=== PATIENT | male | born 1960 | race Caucasian/White ===

== ENCOUNTER 2019-12-14 21:45 | Emergency (ER) | payer OTHER, SELFPAY ==
--- NOTE | ~2019-12-14 | XR_ITS ---
XR foot LT min 3V, XR ankle LT min 3V 12/14/2019 22:21 Indication: Left foot and ankle pain after recent fall Procedure: 4 views left foot and 4 views left ankle Comparison: No prior studies for comparison. Findings: There are second, third and fourth metatarsal neck fractures with mild lateral angulation. There is an intra-articular avulsion fracture medial base first proximal phalanx. Lisfranc joint inta ct. There is a degenerative calcaneal enthesophyte at the plantar surface. Ankle mortise intact. No f oreign bodies. Impression: 1: Mildly angulated nondisplaced fractures left second, third and fourth metatarsal necks. 2: Intra-articular avulsion fracture medial base left first proximal phalanx. Reviewed, dictated and finalized at location A. MACY TEACHER Impression: 1: Mildly angulated nondisplaced fractures left second, third and fourth metata rsal necks. 2: Intra-articular avulsion fracture medial base left first proximal phalanx. Impression: 1: Mildly angulated nondisplaced fractures left second, third and fourth metata rsal necks. 2: Intra-articular avulsion fracture medial base left first proximal phalanx.
[2019-12-14 21:49] VITALS: BP 152/78; PULSE 106; RESP 20; TEMP 36.7; O2SAT 98
--- NOTE | 2019-12-14 22:00 | ED.LOWEXIN ---
HPI - Extremity Injury (Lower) General Chief Complaint: Extremity Injury, Lower Stated Complaint: L foot pain Time Seen by Provider: 12/14/19 22:00 Source: patient Mode of arrival: ambulatory Limitations: no limitations History of Present Illness HPI Narrative: A 59 y/o male presents to the ED with c/o left foot pain that began 45 minutes ago. Pt states that he was carrying a box of decorations from a democrat when his left foot hit a curb and he fell over. Pt notes that he took Ibuprofen earlier today for a NEWSOME. Onset (ago): minute(s) (45) Injury: Left: foot Place: street/outdoors Context: other (hit curb) Related Data Home Medications Medication Instructions Recorded Confirmed lisinopril-hydrochlorothiazide 09/01/19 metformin 09/01/19 alcohol swabs pad TOPICAL 09/24/19 aspirin 81 mg tablet,delayed 81 mg PO DAILY 09/24/19 release blood sugar diagnostic #10 each 09/24/19 blood-glucose meter #1 each 09/24/19 cetirizine 10 mg tablet 10 mg PO DAILY 09/24/19 lancets 28 gauge #25 each 09/24/19 multivitamin 1 tablet PO DAILY 09/24/19 nystatin 100,000 unit/gram topical 1 applic TOPICAL BID 09/24/19 cream pen needle, diabetic 32 gauge x #10 each 09/24/19 Allergies Allergy/AdvReac Type Severity Reaction Status Date / Time No Known Allergies Allergy Verified 09/01/19 12:04 Review of Systems Review of Systems: All systems reviewed & are unremarkable except as noted in HPI and below Musculoskeletal: Comments: Reports: left foot pain PMFSH Past Medical History Medical History (Updated 12/14/19 @ 22:43 by James Anaya DO) Bronchitis Carpal tunnel syndrome of left wrist Diabetes GERD (gastroesophageal reflux disease) HTN (hypertension) Hypercholesterolemia Kidney stone Pneumonia Sleep apnea Surgical History Surgical History Hx of tonsillectomy Family History Family History Father Family history of suicide, Onset Age: 62 Patient's father is , Onset Age: 62 Sibling Patient's sister is in good health Patient's brother is in good health Family history of lupus erythematosus Patient's sister is Mother Family history of Alzheimer's disease Patient's mother is Social History Social History Smoking status: Current every day smoker Tobacco type: cigarettes Second hand tobacco smoke exposure: No Alcohol intake: current Gender identity (if verbalized by the patient): Male Comments PCP: TOMMIE Fuentes Exam Narrative: Exam Narrative: APPEARANCE: No acute distress, nontoxic, resting in bed Eyes: EOMI HEENT: Normocephalic, atraumatic, RESPIRATORY: No respiratory distress MUSCULOSKELETAl: Tender to palpation over the left dorsal distal foot at the base of digits 1 through 5 mild tenderness over the anterior ankle, no tenderness over the medial or lateral malleolus, no proximal fibula tenderness, dorsalis pedis pulse 2+, neurovascular intact NEURO: Awake and alert. Following commands, speech normal, no focal deficits SKIN:: Warm, dry. Normal Color no rash or lesions Course Course Emergency Course: Discussed with patient results of workup and diagnosis. Discussed need for follow-up with primary care, proper use of medication, and reasons to return to the emergency department. Patient understands and agrees to current treatment plan Vital Signs Vital signs: Vital Signs Temperature 98.1 F 12/14/19 21:49 Pulse Rate 106 H 12/14/19 21:49 Respiratory Rate 12/14/19 21:49 Blood Pressure 152/78 H 12/14/19 21:49 Pulse Oximetry 98 12/14/19 21:49 Temperature 98.1 F 12/14/19 21:49 Pulse Rate 106 H 12/14/19 21:49 Respiratory Rate 12/14/19 21:49 Blood Pressure 152/78 H 12/14/19 21:49 Pulse Oximetry 98 12/14/19 21:49 Procedu
[2019-12-14 22:57] VITALS: BP 143/85; PULSE 100; RESP 20; O2SAT 95
== END 2019-12-14 23:01 | disposition home or self-care (01) ==
PROVIDERS: Emergency Provider Emergency Medicine; PCP Physician Assistant
DX: S92.325A Nondisplaced fracture of second metatarsal bone, left foot, initial encounter for closed fracture (principal); S92.335A Nondisplaced fracture of third metatarsal bone, left foot, initial encounter for closed fracture; S92.345A Nondisplaced fracture of fourth metatarsal bone, left foot, initial encounter for closed fracture; S92.412A Displaced fracture of proximal phalanx of left great toe, initial encounter for closed fracture; E11.9 Type 2 diabetes mellitus without complications; K21.9 Gastro-esophageal reflux disease without esophagitis; I10 Essential (primary) hypertension; E78.00 Pure hypercholesterolemia, unspecified; G47.30 Sleep apnea, unspecified; Z87.442 Personal history of urinary calculi; F17.210 Nicotine dependence, cigarettes, uncomplicated; Z79.82 Long term (current) use of aspirin; Z79.84 Long term (current) use of oral hypoglycemic drugs
CPT/HCPCS: 29515; 73610; 73630; 99284

== ENCOUNTER 2020-02-29 08:19 | Outpatient (CLI) | payer OTHER, SELFPAY ==
[2020-02-29 09:03] LABS: Hematocrit 45.1 % (42.0-52.0); Hemoglobin 14.9 g/dL (14.0-18.0); Mean Corpuscular Hemoglobin 32.1 pg (26-34); Mean Corpuscular Volume 97.2 fl (80-100); Mean Platelet Volume 10.3 fl (7.4-10.4); Platelet Count Result 221 k/mm3 (150-375); Red Blood Count 4.64 M/mm3 (4.6-6.20); Red Cell Distribution Width 12.5 % (11.5-14.5); White Blood Count 9.7 K/mm3 (4.5-10.0)
[2020-02-29 09:11] LABS: Hemoglobin A1C 8.9 % (<5.7)
[2020-02-29 09:16] LABS: Alanine Aminotransferase 40 U/L (4-50); Albumin Level 3.7 g/dL (3.5-5.1); Alkaline Phosphatase 106 U/L (38-126); Aspartate Amino Transferase 27 U/L (17-59); Bilirubin,Total 0.4 mg/dL (0.2-1.3); Blood Urea Nitrogen 16 mg/dL (9-20); Calcium 8.5 mg/dL (8.4-10.2); Carbon Dioxide 32 mmol/L (22-30); Chloride 100 mmol/L (98-107); Cholesterol 144 mg/dL (0-200); Estimated Glomerular Filt Rate > 60; Glucose 188 mg/dL (75-110); HDL Direct 23 mg/dL; Potassium 4.4 mmol/L (3.4-5.0); Sodium 136 mmol/L (137-145); Triglycerides 105 mg/dL (<150)
[2020-02-29 09:27] LABS: LDL Cholesterol Direct 99 mg/dL
[2020-02-29 09:45] LABS: Creatinine Urine 110.5 mg/dL
[2020-02-29 09:46] LABS: Prostate Specific Antigen 0.7 ng/mL (< OR = 4.0)
[2020-02-29 10:01] LABS: MALB Creatinine Ratio < 5.4 mg/g (0-30); Microalbumin Urine Random < 6.0 mg/L (0-16.7)
== END 2020-02-29 08:20 | disposition home or self-care (01) ==
LOC: ANHLAB 08:21
PROVIDERS: PCP Physician Assistant; Visit Provider Physician Assistant
DX: Z00.00 Encounter for general adult medical examination without abnormal findings (principal); I10 Essential (primary) hypertension; E11.9 Type 2 diabetes mellitus without complications; Z12.5 Encounter for screening for malignant neoplasm of prostate
CPT/HCPCS: 36415; 80053; 80061; 82043; 83036; 84153; 84443; 85027; G0103

== ENCOUNTER 2020-09-05 08:32 | Outpatient (CLI) | payer OTHER, SELFPAY ==
[2020-09-05 08:59] LABS: Alanine Aminotransferase 68 U/L (4-50); Albumin Level 3.6 g/dL (3.5-5.1); Alkaline Phosphatase 97 U/L (38-126); Anion Gap 4 mmol/L (8-16); Aspartate Amino Transferase 40 U/L (17-59); Bilirubin,Total 0.8 mg/dL (0.2-1.3); Blood Urea Nitrogen 13 mg/dL (9-20); Calcium 9.4 mg/dL (8.4-10.2); Carbon Dioxide 35 mmol/L (22-30); Chloride 97 mmol/L (98-107); Estimated Glomerular Filt Rate > 60; Glucose 170 mg/dL (75-110); Potassium 4.4 mmol/L (3.4-5.0); Sodium 136 mmol/L (137-145)
[2020-09-05 09:07] LABS: Hemoglobin A1C 8.7 % (<5.7)
[2020-09-05 09:30] LABS: Prostate Specific Antigen 0.9 ng/mL (< OR = 4.0)
== END 2020-09-05 08:33 | disposition home or self-care (01) ==
LOC: ANHLAB 08:34
PROVIDERS: PCP Physician Assistant; Visit Provider Physician Assistant
DX: Z12.5 Encounter for screening for malignant neoplasm of prostate (principal); E11.9 Type 2 diabetes mellitus without complications; Z00.00 Encounter for general adult medical examination without abnormal findings
CPT/HCPCS: 36415; 80053; 83036; 84153; 84443; G0103

== ENCOUNTER 2020-10-30 16:26 | Outpatient (CLI) | payer OTHER, SELFPAY ==
--- NOTE | ~2020-10-30 | XR_ITS ---
EXAMINATION: XR chest 2V EXAM DATE: 10/30/2020 16:43 INDICATION: Cough, shortness of breath. TECHNIQUE: Frontal and lateral projections of the chest obtained and reviewed. Comparison is made to prior examination from 04/02/2010. FINDINGS: The lungs are clear. There are no pleural effusions. The cardiomediastinal silhouette is within normal limits. There is no pneumothorax suspected. Moderate lower thoracic dextroscoliosis. IMPRESSION: No acute cardiopulmonary findings. Reviewed, dictated and finalized at location A. ION INSTALLER
== END 2020-10-30 16:27 | disposition home or self-care (01) ==
PROVIDERS: PCP Physician Assistant; Visit Provider Internal Medicine
DX: R05 Cough (principal); R06.02 Shortness of breath
CPT/HCPCS: 71046

== ENCOUNTER 2021-01-14 11:18 | Emergency (ER) | payer OTHER, SELFPAY ==
[2021-01-14 11:36] VITALS: BP 132/66; PULSE 91; RESP 16; TEMP 36.1; O2SAT 98
--- NOTE | 2021-01-14 11:42 | ED.GENADULT ---
HPI - General Adult General Chief complaint: Skin/Abscess/Foreign Body Stated complaint: Boil on Back Time Seen by Provider: 01/14/21 11:42 Source: patient and RN notes reviewed Mode of arrival: ambulatory Limitations: no limitations History of Present Illness HPI narrative: 60-year-old male presents with complaints of tenderness and swelling for the past 3-4 days. Bernabe reports repeat boil to LT upper back with increasing size over the past 48 hours. No treatment. Tender to touch. No drainage. History of skin lesions. No fever or chills. No abdominal pain, nausea, and vomiting. Tolerating po intake well. Tetanus up to date. Remains active. The patient reports he have not been diagnosed with COVID-19. The patient reports he received the Jorge and Jorge vaccine on 12/29/2020. The patient reports he is not waiting for the results of a COVID-19 lab test. The patient reports he do not have weakness or fatigue. The patient reports he do not have a new or worsening cough or shortness of breath. Denies chest pain. The patient reports he do not have any rhinorrhea, congestion, loss of taste or smell, sore throat, and diarrhea. Denies recent traveling. Denies concerns for COVID-19 or exposures been home with limited outdoor exposure except for essential household needs, work, and return home. At this time, patient is not suspected of having COVID-19. Some parts of this dictation were generated by voice recognition software and may contain typographical and/or grammatical inaccuracies. Related Data Home Medications Medication Instructions Recorded Confirmed alcohol swabs pad TOPICAL 09/24/19 11/05/20 aspirin 81 mg tablet,delayed 81 mg PO DAILY 09/24/19 01/14/21 release blood sugar diagnostic #10 each 09/24/19 11/05/20 blood-glucose meter #1 each 09/24/19 11/05/20 lancets 28 gauge #25 each 09/24/19 11/05/20 multivitamin 1 tablet PO DAILY 09/24/19 01/14/21 Allergies Allergy/AdvReac Type Severity Reaction Status Date / Time No Known Allergies Allergy Verified 01/14/21 11:29 Review of Systems Review of Systems: Narrative: CONSTITUTIONAL: Denies fever, chills, sweats. EYES: Denies visual changes, redness, discharge. ENT: Denies rhinorrhea, congestion, sore throat, otalgia. CARDIOVASCULAR: Denies chest pain, palpitations, edema. RESPIRATORY: Denies dyspnea, wheezing, cough. GASTROINTESTINAL: Denies abdominal pain, nausea, vomiting, diarrhea. SKIN: Denies rash or itching. Left upper back with tenderness and swelling. Denies drainage. MUSCULOSKELETAL: Denies acute back pain, joint pain, or myalgia. NEUROLOGIC: Denies numbness or focal weakness. PSYCHIATRIC: Denies anxiety or depression. All systems reviewed & are unremarkable except as noted in HPI and below. [facility] Past Medical History Medical History Bronchitis Carpal tunnel syndrome of left wrist Diabetes GERD (gastroesophageal reflux disease) HTN (hypertension) Hypercholesterolemia Kidney stone Pneumonia Sleep apnea Surgical History Surgical History Hx of tonsillectomy Family History Family History (Updated 01/18/21 @ 18:58 by FARHANA Ambrosio) Father Family history of suicide, Onset Age: 62 Patient's father is , Onset Age: 62 Sibling Patient's sister is in good health Patient's brother is in good health Family history of lupus erythematosus Patient's sister is Mother Family history of Alzheimer's disease Patient's mother is Sibling Skin cancer (melanoma) Social History Social History (Updated 01/14/21 @ 11:53 by FARHANA Ambrosio) Smoking packs per day: 1 Smoking cigarettes per day: 20.0 Years smoked: 40 Smoking pack-years: 40.00 Smoking status: Current every day smoker Tobacco type: cigarettes Second hand tobacco smoke exposure:
== END 2021-01-14 12:02 | disposition home or self-care (01) ==
PROVIDERS: Emergency Provider Nurse Practitioner Family; PCP Physician Assistant
DX: L98.9 Disorder of the skin and subcutaneous tissue, unspecified (principal); E11.9 Type 2 diabetes mellitus without complications; K21.9 Gastro-esophageal reflux disease without esophagitis; I10 Essential (primary) hypertension; E78.00 Pure hypercholesterolemia, unspecified; G47.30 Sleep apnea, unspecified
CPT/HCPCS: 99213; G0463

== ENCOUNTER 2021-01-21 09:10 | Outpatient (CLI) | payer OTHER, SELFPAY ==
[2021-01-21 12:46] LABS: Alanine Aminotransferase 56 U/L (4-50); Albumin Level 3.8 g/dL (3.5-5.1); Alkaline Phosphatase 103 U/L (38-126); Anion Gap 6 mmol/L (8-16); Aspartate Amino Transferase 31 U/L (17-59); Bilirubin,Total 0.4 mg/dL (0.2-1.3); Blood Urea Nitrogen 18 mg/dL (9-20); Calcium 9.1 mg/dL (8.4-10.2); Carbon Dioxide 29 mmol/L (22-30); Chloride 98 mmol/L (98-107); Estimated Glomerular Filt Rate > 60; Glucose 250 mg/dL (75-110); Potassium 5.1 mmol/L (3.4-5.0); Sodium 133 mmol/L (137-145)
[2021-01-21 13:19] LABS: Creatinine Urine 98.1 mg/dL
[2021-01-21 13:20] LABS: MALB Creatinine Ratio 8.5 mg/g (0-30); Microalbumin Urine Random 8.3 mg/L (0-16.7)
== END 2021-01-21 09:11 | disposition home or self-care (01) ==
LOC: ANHWCLAB 09:14
PROVIDERS: PCP Physician Assistant; Visit Provider Internal Medicine Endocrinology, Diabetes & Metabolism
DX: E11.9 Type 2 diabetes mellitus without complications (principal); E78.00 Pure hypercholesterolemia, unspecified; I10 Essential (primary) hypertension
CPT/HCPCS: 36415; 80053; 82043; 84443

== ENCOUNTER 2021-02-05 08:22 | Emergency (ER) | payer OTHER, SELFPAY ==
[2021-02-05 08:45] VITALS: BP 123/60; PULSE 95; RESP 16; TEMP 36.1; O2SAT 98
--- NOTE | 2021-02-05 09:08 | ED.SKABFB ---
HPI - Skin/Abscess/Foreign Bdy General Chief complaint: Skin/Abscess/Foreign Body Stated complaint: cyst on back Time Seen by Provider: 02/05/21 09:08 Source: patient Mode of arrival: ambulatory Limitations: no limitations History of Present Illness HPI narrative: Bernabe Santiago is a 60 yo male with a PMH of Type1 DM, HTN, ED who comes to [facility] and for repeat visit with a large infected cyst on his back. Indurated area of the cyst is about 10 x 10 inflamed area is smaller elliptical 3 x 5 area. It does not feel fluctuant but is tender and patient complains that he cannot sleep. He has been taking his Bactrim and has completed the prescription. He has not been putting warm soaks on a regular basis but does take a warm shower Related Data Home Medications Medication Instructions Recorded Confirmed alcohol swabs pad TOPICAL 09/24/19 01/21/21 aspirin 81 mg tablet,delayed 81 mg PO DAILY 09/24/19 01/21/21 release blood-glucose meter #1 each 09/24/19 01/21/21 lancets 28 gauge #25 each 09/24/19 01/21/21 multivitamin 1 tablet PO DAILY 09/24/19 01/21/21 Allergies Allergy/AdvReac Type Severity Reaction Status Date / Time No Known Allergies Allergy Verified 02/05/21 14:33 Review of Systems Review of Systems: Narrative: CONSTITUTIONAL: Denies fever, chills, sweats. EYES: Denies visual changes, redness, discharge. ENT: Denies rhinorrhea, congestion, sore throat, otalgia. CARDIOVASCULAR: Denies chest pain, palpitations, edema. RESPIRATORY: Denies dyspnea, wheezing, cough GASTROINTESTINAL: Denies abdominal pain, nausea, vomiting, diarrhea. GENITOURINARY: Denies dysuria, hematuria, abnormal discharge SKIN: Denies rash or itching. Large cystic inflamed area on left upper back measuring 3 x 5 with a 10 x 10 indurated base suspect this to be a cyst NEUROLOGIC: Denies numbness, or focal weakness. PSYCHIATRIC: Denies anxiety or depression. [facility] Past Medical History Medical History Bronchitis Carpal tunnel syndrome of left wrist Diabetes GERD (gastroesophageal reflux disease) HTN (hypertension) Hypercholesterolemia Kidney stone Pneumonia Sleep apnea Surgical History Surgical History History of carpal tunnel release 1990 Hx of tonsillectomy Family History Family History Father Family history of suicide, Onset Age: 62 Patient's father is , Onset Age: 62 Sibling Patient's sister is in good health Patient's brother is in good health Family history of lupus erythematosus Patient's sister is Mother Family history of Alzheimer's disease Patient's mother is Sibling Skin cancer (melanoma) Social History Social History Smoking packs per day: 1 Smoking cigarettes per day: 20.0 Years smoked: 40 Smoking pack-years: 40.00 Smoking status: Current every day smoker Tobacco type: cigarettes Second hand tobacco smoke exposure: No Alcohol intake: current Substance use: never Gender identity (if verbalized by the patient): Male Comments At time of signature, I agree with nursing past medical, surgical, social and family history. There is no relevant family history pertinent to the presenting complaint. Exam Narrative: Exam Narrative: GENERAL: This is a well-nourished, well-developed patient, in mild distress. HEAD: normocephalic, atraumatic. EYES: PERRL. Sclera clear/white. Vision is grossly intact. EARS: External ears normal, auditory canals clear and without drainage, TMs normal without perforation. Hearing grossly intact. NOSE: External nose normal without nasal discharge, nares without redness, no rhinorrhea. THROAT: Mucous membranes moist, posterior pharynx NECK: Neck supple, non-tender CARDIOVASCULAR: Reg
== END 2021-02-05 10:00 | disposition home or self-care (01) ==
PROVIDERS: Emergency Provider Nurse Practitioner; PCP Physician Assistant
DX: L72.9 Follicular cyst of the skin and subcutaneous tissue, unspecified (principal); F17.210 Nicotine dependence, cigarettes, uncomplicated; E11.9 Type 2 diabetes mellitus without complications; K21.9 Gastro-esophageal reflux disease without esophagitis; I10 Essential (primary) hypertension; E78.00 Pure hypercholesterolemia, unspecified; G47.30 Sleep apnea, unspecified
CPT/HCPCS: 10061; 99213; G0463

== ENCOUNTER 2021-04-17 08:54 | Outpatient (CLI) | payer OTHER, SELFPAY ==
[2021-04-17 09:41] LABS: Cholesterol 153 mg/dL (0-200); HDL Direct 24 mg/dL; Triglycerides 92 mg/dL (<150)
[2021-04-17 09:52] LABS: LDL Cholesterol Direct 96 mg/dL
== END 2021-04-17 08:55 | disposition home or self-care (01) ==
PROVIDERS: PCP Physician Assistant; Visit Provider Internal Medicine Endocrinology, Diabetes & Metabolism
DX: E78.00 Pure hypercholesterolemia, unspecified (principal)
CPT/HCPCS: 36415; 80061

== ENCOUNTER 2021-06-04 11:37 | Emergency (ER) | payer OTHER, SELFPAY ==
--- NOTE | 2021-06-04 11:46 | WPDEDEXPGENP ---
HPI - General Ped General Chief complaint: Abdominal Pain Stated complaint: right side pain Time Seen by Provider: 06/04/21 11:47 Source: patient and RN notes reviewed Mode of arrival: ambulatory Limitations: no limitations Nursing Documentation: reviewed/agree History of Present Illness HPI narrative: 60-year-old male presents to the emergency room with right lower quadrant pain. Patient states that a week ago he slipped at work and thought he pulled a muscle but since yesterday the right lower quadrant pain has become worse. Patient states I am concerned for appendicitis. Denies fevers. No nausea vomiting or diarrhea. No chest pain or shortness of breath. Related Data Home Medications Medication Instructions Recorded Confirmed alcohol swabs pad TOPICAL 09/24/19 04/27/21 aspirin 81 mg tablet,delayed 81 mg PO DAILY 09/24/19 06/04/21 release multivitamin 1 tablet PO DAILY 09/24/19 06/04/21 Allergies Allergy/AdvReac Type Severity Reaction Status Date / Time No Known Allergies Allergy Verified 06/04/21 11:56 Pediatric Review of Systems All systems ED: reviewed and negative except as stated Constitutional: Denies fever and chills Cardiovascular: Denies chest pain Respiratory: Denies cough and dyspnea Gastrointestinal: Reports as per HPI and abdominal pain; Denies nausea and vomiting Genitourinary: Denies dysuria Musculoskeletal: Denies back pain and joint swelling Integumentary: Denies rash Neurological: Denies headache Endocrine: Denies fatigue PMFSH Past Medical History Medical History Bronchitis Carpal tunnel syndrome of left wrist Diabetes GERD (gastroesophageal reflux disease) HTN (hypertension) Hypercholesterolemia Kidney stone Pneumonia Sleep apnea Surgical History Surgical History History of carpal tunnel release 1990 Hx of tonsillectomy Infected epidermoid cyst Family History Family History Father Family history of suicide, Onset Age: 62 Patient's father is , Onset Age: 62 Sibling Patient's sister is in good health Patient's brother is in good health Family history of lupus erythematosus Patient's sister is Mother Family history of Alzheimer's disease Patient's mother is Sibling Skin cancer (melanoma) Social History Social History Smoking packs per day: 1 Smoking cigarettes per day: 20.0 Years smoked: 40 Smoking pack-years: 40.00 Smoking status: Current every day smoker Tobacco type: cigarettes Second hand tobacco smoke exposure: No Alcohol intake: current Substance use: never Gender identity (if verbalized by the patient): Male Comments At the time of my signature, I reviewed and agree with the nursing past medical, surgical, social, and family history. There is no relevant family history pertinent to the patient complaint. Pediatric Exam General: Limitations: no limitations General appearance: well-appearing, well-hydrated, active and well-nourished Head: Head exam: normocephalic Eye: Eye exam: Present normal appearance ENT: ENT exam: normal exam Neck: Neck exam: Present normal inspection and full ROM Chest: Chest inspection: Present normal inspection Respiratory: Respiratory exam: Present normal lung sounds bilaterally; Absent respiratory distress, wheezes and accessory muscle use Cardiovascular: Cardiovascular exam: Present regular rate and normal rhythm Abdominal Exam: Abdominal exam: Present soft, tenderness (Right lower quadrant), normal bowel sounds and tenderness at McBurney's Point Abdominal tenderness: Present RLQ Extremities Exam: Extremities exam: Present normal inspection and full ROM Back Exam: Back exam: Present normal inspection and full ROM; Absent tend
[2021-06-04 11:47] VITALS: BP 111/71; PULSE 91; RESP 16; TEMP 36.2; O2SAT 98
== END 2021-06-04 11:54 | disposition short-term general hospital (02) ==
LOC: EXPCOLL 11:39
PROVIDERS: Emergency Provider Nurse Practitioner; PCP Physician Assistant
DX: R10.9 Unspecified abdominal pain (principal); E11.9 Type 2 diabetes mellitus without complications; K21.9 Gastro-esophageal reflux disease without esophagitis; I10 Essential (primary) hypertension; E78.00 Pure hypercholesterolemia, unspecified; G47.30 Sleep apnea, unspecified; F17.210 Nicotine dependence, cigarettes, uncomplicated
CPT/HCPCS: 99212; G0463

== ENCOUNTER 2021-06-04 12:09 | Emergency (ER) | payer OTHER, SELFPAY ==
[2021-06-04 12:27] VITALS: BP 126/79; PULSE 89; RESP 18; O2SAT 97
--- NOTE | 2021-06-04 12:37 | PC.NURSE ---
This RN into pts room to start IV. Pt states that he doesn't really want an IV if he doesn't need one. Informed Dr. Connell of this.
--- NOTE | 2021-06-04 12:58 | ED.ABDPAIN ---
HPI - Abdominal Pain General Chief Complaint: Abdominal Pain Stated Complaint: RLQ pain Time Seen by Provider: 06/04/21 12:26 Source: patient Mode of arrival: ambulatory Limitations: no limitations History of Present Illness HPI narrative: 60-year-old male Complains of right-sided back flank and abdomen pain for several days worse for the last day or 2 Pain waxes and wanes and at its worst is an 8 He has not noticed anything that makes it better or worse No fever, appetite is good, no nausea vomiting diarrhea or constipation Similarly no hematuria no dysuria or frequency He has a remote history of kidney stones when he was a kid but does not think they felt like this He was talking to friends at work and they got him worried about appendicitis Related Data Home Medications Medication Instructions Recorded Confirmed alcohol swabs pad TOPICAL 09/24/19 04/27/21 aspirin 81 mg tablet,delayed 81 mg PO DAILY 09/24/19 06/04/21 release multivitamin 1 tablet PO DAILY 09/24/19 06/04/21 Allergies Allergy/AdvReac Type Severity Reaction Status Date / Time No Known Allergies Allergy Verified 06/04/21 11:56 Review of Systems Review of Systems: All systems reviewed & are unremarkable except as noted in HPI and below Constitutional: Constitutional: Reports no additional constitutional complaints, Denies chills, Denies fever(s) and Denies headache(s) Eyes: Eyes: Reports no additional eye complaints and Denies change in vision ENT: Denies headache(s) and Denies sore throat Cardiovascular: Cardiovascular: Denies chest pain and Denies dyspnea Respiratory: Respiratory: Denies cough and Denies dyspnea Gastrointestinal: Gastrointestinal: Reports abdominal pain, Denies bloating, Denies constipation, Denies diarrhea and Denies vomiting Genitourinary: Genitourinary: Denies hematuria, Denies dysuria and Denies urinary frequency Musculoskeletal: Musculoskeletal: Denies deformity, Denies arthralgias, Denies joint swelling and Denies numbness Integumentary/Breasts: Skin/Breast: Denies rash and Denies wounds Neurologic: Denies headache(s), Denies focal weakness and Denies numbness Psychiatric: Psychiatric: Reports no additional psychiatric complaints Endocrine: Endocrine: Reports no additional endocrine complaints Hematologic/Lymphatic: Hematologic/Lymphatic: Reports no additional hematologic/lymphatic complaints Allergic/Immunologic: Allergic/Immunologic: Reports no additional allergic/immunologic complaints PMFSH Past Medical History Medical History Bronchitis Carpal tunnel syndrome of left wrist Diabetes GERD (gastroesophageal reflux disease) HTN (hypertension) Hypercholesterolemia Kidney stone Pneumonia Sleep apnea Surgical History Surgical History History of carpal tunnel release 1990 Hx of tonsillectomy Infected epidermoid cyst Family History Family History Father Family history of suicide, Onset Age: 62 Patient's father is , Onset Age: 62 Sibling Patient's sister is in good health Patient's brother is in good health Family history of lupus erythematosus Patient's sister is Mother Family history of Alzheimer's disease Patient's mother is Sibling Skin cancer (melanoma) Social History Social History Smoking packs per day: 1 Smoking cigarettes per day: 20.0 Years smoked: 40 Smoking pack-years: 40.00 Smoking status: Current every day smoker Tobacco type: cigarettes Second hand tobacco smoke exposure: No Alcohol intake: current Substance use: never Gender identity (if verbalized by the patient): Male Exam Const: General: cooperative, no acute distress and alert Nutritional Appearance: obese Orientation/cons
[2021-06-04 13:40] LABS: Basophils Percent Auto 0.4 % (0.2-1.2); Eosinophils Absolute Auto 0.2 K/mm3 (0-0.3); Eosinophils Percent Auto 2.1 % (0-4.4); Hematocrit 43.3 % (42.0-52.0); Hemoglobin 14.5 g/dL (14.0-18.0); Immature Granulocyte Absolute 0.05 K/mm3 (0.00-0.031); Immature Granulocyte Percent A 0.5 % (0-0.5); Mean Corpuscular HGB Conc 33.5 g/dl (32-36); Mean Corpuscular Volume 95.6 fl (80-100); Monocytes Absolute Auto 0.8 K/mm3 (0.1-0.6); Monocytes Percent Auto 8.5 % (2.6-8.5); Neutrophils Absolute Auto 6.3 K/mm3 (1.3-6.7); Neutrophils Percent Auto 65.5 % (45.5-73.1); Platelet Count Result 225 k/mm3 (150-375); Red Blood Count 4.53 M/mm3 (4.6-6.20); Red Cell Distribution Width 12.9 % (11.5-14.5); White Blood Count 9.6 K/mm3 (4.5-10.0)
[2021-06-04 13:55] LABS: Alanine Aminotransferase 34 U/L (4-50); Albumin Level 3.7 g/dL (3.5-5.1); Alkaline Phosphatase 90 U/L (38-126); Anion Gap 5 mmol/L (8-16); Aspartate Amino Transferase 27 U/L (17-59); Bilirubin,Total 0.4 mg/dL (0.2-1.3); Blood Urea Nitrogen 18 mg/dL (9-20); Carbon Dioxide 29 mmol/L (22-30); Chloride 102 mmol/L (98-107); Estimated CRCL calculation 123 ml/min; Estimated Glomerular Filt Rate > 60; Glucose 81 mg/dL (65-110); Lipase 296 U/L (23-300); Potassium 4.3 mmol/L (3.4-5.0); Sodium 136 mmol/L (137-145)
[2021-06-04 14:00] VITALS: BP 120/75; PULSE 88; RESP 18; O2SAT 100
[2021-06-04 14:59] LABS: Add Urine Microscopic? NO; Appearance Urine Clear (Clear); Bilirubin Urine Negative (Negative); Blood Urine Negative (Negative); Color Urine Yellow (Yellow); Glucose Urine UA Negative (Negative); Ketones Urine Negative (Negative); Leukocyte Esterase Ur Negative LEU/UL (Negative); Nitrate Urine Negative (Negative); Protein Urine Negative (Negative); Specific Grav Ur 1.023 (1.001-1.035); Urobilinogen Urine Negative mg/dL (<2.0)
[2021-06-04 16:09] VITALS: BP 121/87; PULSE 80; RESP 18; O2SAT 100
== END 2021-06-04 16:24 | disposition home or self-care (01) ==
PROVIDERS: Emergency Provider Emergency Medicine; PCP Physician Assistant
DX: R10.9 Unspecified abdominal pain (principal); T14.8XXA Other injury of unspecified body region, initial encounter; F17.210 Nicotine dependence, cigarettes, uncomplicated; E11.9 Type 2 diabetes mellitus without complications; I10 Essential (primary) hypertension; E78.00 Pure hypercholesterolemia, unspecified; Z87.442 Personal history of urinary calculi; Z87.19 Personal history of other diseases of the digestive system; Y33.XXXA Other specified events, undetermined intent, initial encounter; Z79.82 Long term (current) use of aspirin
CPT/HCPCS: 36415; 80053; 81003; 83690; 85025; 99283

== ENCOUNTER 2021-08-26 06:49 | Outpatient (CLI) | payer OTHER, SELFPAY ==
[2021-08-26 08:26] LABS: Hematocrit 45.4 % (42.0-52.0); Hemoglobin 15.3 g/dL (14.0-18.0); Mean Corpuscular HGB Conc 33.7 g/dl (32-36); Mean Corpuscular Hemoglobin 32.1 pg (26-34); Mean Corpuscular Volume 95.4 fl (80-100); Mean Platelet Volume 10.2 fl (7.4-10.4); Platelet Count Result 235 k/mm3 (150-375); Red Blood Count 4.76 M/mm3 (4.6-6.20); Red Cell Distribution Width 12.5 % (11.5-14.5); White Blood Count 9.2 K/mm3 (4.5-10.0)
[2021-08-26 08:27] LABS: Hemoglobin A1C 7.1 % (<5.7)
[2021-08-26 08:44] LABS: Alanine Aminotransferase 37 U/L (4-50); Albumin Level 3.9 g/dL (3.5-5.1); Alkaline Phosphatase 87 U/L (38-126); Anion Gap 7 mmol/L (8-16); Aspartate Amino Transferase 29 U/L (17-59); Bilirubin,Total 0.6 mg/dL (0.2-1.3); Blood Urea Nitrogen 16 mg/dL (9-20); Calcium 9.3 mg/dL (8.4-10.2); Carbon Dioxide 31 mmol/L (22-30); Chloride 99 mmol/L (98-107); Cholesterol 157 mg/dL (0-200); Estimated Glomerular Filt Rate > 60; Glucose 152 mg/dL (65-110); HDL Direct 24 mg/dL; Potassium 4.2 mmol/L (3.4-5.0); Sodium 137 mmol/L (137-145); Triglycerides 110 mg/dL (<150)
[2021-08-26 08:55] LABS: LDL Cholesterol Direct 106 mg/dL
[2021-08-26 09:13] LABS: Prostate Specific Antigen 1.3 ng/mL (< OR = 4.0)
[2021-08-26 09:48] LABS: Folic Acid 15.9 ng/mL (2.76->20)
== END 2021-08-26 06:50 | disposition home or self-care (01) ==
PROVIDERS: PCP Physician Assistant; Visit Provider Physician Assistant
DX: E11.9 Type 2 diabetes mellitus without complications (principal); Z12.5 Encounter for screening for malignant neoplasm of prostate; R53.83 Other fatigue
CPT/HCPCS: 36415; 80053; 80061; 82607; 82746; 83036; 84153; 84443; 85027; G0103

== ENCOUNTER → 2021-09-21 03:50 | Outpatient (CLI) | payer OTHER, SELFPAY ==
[2021-09-21 20:04] LABS: SARS-CoV-2 RNA PCR Positive
== END ==
PROVIDERS: PCP Physician Assistant; Visit Provider Physician Assistant
DX: U07.1 COVID-19 (principal)
CPT/HCPCS: C9803; U0003; U0005

== ENCOUNTER 2021-12-13 00:02 | Day surgery (SDC) | payer OTHER, SELFPAY ==
[2021-11-29 13:56] VITALS: BMI 41.2
--- NOTE | 2021-12-10 13:36 | PM.HPGS ---
History of Present Illness History of Present Illness Consent: Risks, benefits, and alternatives have been discussed and questions answered. Patient agrees to proceed with procedure. Chief complaint: neoplasm screening, hx of colon polyps Narrative: Bernabe Santiago is a 61 year old male referred for colon cancer screening. he has a history of polyps Review of Systems Review of Systems: All systems reviewed & are unremarkable except as noted in HPI and below PMFSH Past Medical History Medical History Bronchitis Carpal tunnel syndrome of left wrist Diabetes GERD (gastroesophageal reflux disease) HTN (hypertension) Hypercholesterolemia Kidney stone Pneumonia Sleep apnea Surgical History Surgical History History of carpal tunnel release 1990 Hx of tonsillectomy Infected epidermoid cyst Family History Family History Father Family history of suicide, Onset Age: 62 Patient's father is , Onset Age: 62 Sibling Patient's sister is in good health Patient's brother is in good health Family history of lupus erythematosus Patient's sister is Mother Family history of Alzheimer's disease Patient's mother is Sibling Skin cancer (melanoma) Social History Social History Smoking packs per day: 1 Smoking cigarettes per day: 20.0 Years smoked: 40 Smoking pack-years: 40.00 Smoking status: Current every day smoker Tobacco type: cigarettes Second hand tobacco smoke exposure: No Alcohol intake: current Substance use: never Living arrangements: with family Gender identity (if verbalized by the patient): Male Sexual Orientation (if Verbalized by the Patient): Straight or Heterosexual Spiritual care concerns: No Meds Home Medications and Allergies Home Medications Medication Instructions Recorded Confirmed Type alcohol swabs pad TOPICAL 09/24/19 08/31/21 History aspirin 81 mg tablet,delayed 81 mg PO DAILY 09/24/19 11/29/21 History release multivitamin 1 tablet PO DAILY 09/24/19 11/29/21 History pen needle, diabetic 32 gauge x See Rx Instructions .ROUTE 08/24/20 08/31/21 Rx .COMPLEX #100 ea blood sugar diagnostic #400 ea 03/03/21 04/27/21 Rx blood-glucose meter #1 ea 03/03/21 04/27/21 Rx lancets 33 gauge #400 ea 03/03/21 08/31/21 Rx dulaglutide 3 mg/0.5 mL 3 mg SUBCUT WEEKLY #2 ml 08/30/21 11/29/21 Rx subcutaneous pen injector omega-3 acid ethyl esters 1 gram 1 cap PO BID #180 cap 08/30/21 11/29/21 Rx capsule lisinopril 10 1 tablet PO DAILY #90 tablet 10/10/21 11/29/21 Rx mg-hydrochlorothiazide 12.5 mg tablet metformin 1,000 mg tablet 1,000 mg PO BID #180 tablet 10/10/21 11/29/21 Rx insulin glargine 100 unit/mL (3 50 unit SUBCUT DAILY 90 Days #45 ml 11/22/21 11/29/21 Rx mL) subcutaneous pen cetirizine [Zyrtec] 10 mg PO DAILY 11/29/21 11/29/21 History tadalafil 20 mg PO DAILY PRN 11/29/21 11/29/21 History tamsulosin 0.4 mg PO DAILY PRN 11/29/21 11/29/21 History Allergies Allergy/AdvReac Type Severity Reaction Status Date / Time No Known Allergies Allergy Verified 12/13/21 06:22 Exam Resp: Auscultation: clear to auscultation bilaterally Cardio: Rate: regular rate Rhythm: regular rhythm GI: GI Palp: Yes Soft to palpation and No Tenderness to palpation present (GI) Assessment and Plan Assessment and plan (1) Colon cancer screening: Code(s): Z12.11 - Encounter for screening for malignant neoplasm of colon Status: Acute Assessment and Plan: Colonoscopy with possible biopsy or polypectomy or cautery or injection of substances.
[2021-12-13 06:29] VITALS: BP 138/75; PULSE 98; RESP 18; TEMP 36.6; O2SAT 98
[2021-12-13] MEDS: LACTATED RINGERS 1,000 ML 150 ML IV CONT (06:43)
[2021-12-13 06:45] LABS: Glucose Point of Care 131 mg/dl (65-105)
--- NOTE | 2021-12-13 07:06 | WPDANESEPPF ---
Anes - Initial Pre Proc Eval Procedure: Operation Date: 12/13/21 07:30 Proposed Procedures p Screening Colonoscopy - Francisco Javier Valentin MD Date/Time: 12/13/21 07:06 Surgeon: Francisco Javier Valentin MD Pre Op Diagnosis: neoplasm screening, hx of colon polyps Patient Data Age: 61 Gender: M Height: 1.83 m Weight: 133 kg Last Vital Signs Temp 36.6 C 12/13/21 06:29 Pulse 98 12/13/21 06:29 Resp 18 12/13/21 06:29 BP 138/75 12/13/21 06:29 Pulse Ox 98 12/13/21 06:29 Allergies Allergy/AdvReac Type Severity Reaction Status Date / Time No Known Allergies Allergy Verified 12/13/21 06:22 Home Medications Medication Instructions Recorded Confirmed Type alcohol swabs pad TOPICAL 09/24/19 08/31/21 History aspirin 81 mg tablet,delayed 81 mg PO DAILY 09/24/19 11/29/21 History release multivitamin 1 tablet PO DAILY 09/24/19 11/29/21 History pen needle, diabetic 32 gauge x See Rx Instructions .ROUTE 08/24/20 08/31/21 Rx 5/32 .COMPLEX #100 ea blood sugar diagnostic #400 ea 03/03/21 04/27/21 Rx blood-glucose meter #1 ea 03/03/21 04/27/21 Rx lancets 33 gauge #400 ea 03/03/21 08/31/21 Rx dulaglutide 3 mg/0.5 mL 3 mg SUBCUT WEEKLY #2 ml 08/30/21 11/29/21 Rx subcutaneous pen injector omega-3 acid ethyl esters 1 gram 1 cap PO BID #180 cap 08/30/21 11/29/21 Rx capsule lisinopril 10 1 tablet PO DAILY #90 tablet 10/10/21 11/29/21 Rx mg-hydrochlorothiazide 12.5 mg tablet metformin 1,000 mg tablet 1,000 mg PO BID #180 tablet 10/10/21 11/29/21 Rx insulin glargine 100 unit/mL (3 50 unit SUBCUT DAILY 90 Days #45 ml 11/22/21 11/29/21 Rx mL) subcutaneous pen cetirizine [Zyrtec] 10 mg PO DAILY 11/29/21 11/29/21 History tadalafil 20 mg PO DAILY PRN 11/29/21 11/29/21 History tamsulosin 0.4 mg PO DAILY PRN 11/29/21 11/29/21 History Laboratory Tests 12/13/21 06:40 POC Capillary Glucose 131 mg/dl H mg/dl (65-105) Patient hx anesthesia problems: none Family hx anesthesia problems: none Results Review: All pre-operative results and documents have been reviewed as part of the pre-operative evaluation. [facility] Past Medical History Medical History Bronchitis Carpal tunnel syndrome of left wrist Diabetes GERD (gastroesophageal reflux disease) HTN (hypertension) Hypercholesterolemia Kidney stone Pneumonia Sleep apnea Surgical History Surgical History History of carpal tunnel release 1990 Hx of tonsillectomy Infected epidermoid cyst Family History Family History Father Family history of suicide, Onset Age: 62 Patient's father is , Onset Age: 62 Sibling Patient's sister is in good health Patient's brother is in good health Family history of lupus erythematosus Patient's sister is Mother Family history of Alzheimer's disease Patient's mother is Sibling Skin cancer (melanoma) Social History Social History Smoking packs per day: 1 Smoking cigarettes per day: 20.0 Years smoked: 40 Smoking pack-years: 40.00 Smoking status: Current every day smoker Tobacco type: cigarettes Second hand tobacco smoke exposure: No Alcohol intake: current Substance use: never Living arrangements: with family Gender identity (if verbalized by the patient): Male Sexual Orientation (if Verbalized by the Patient): Straight or Heterosexual Spiritual care concerns: No Anes - Eval Final PreProcedure Day of Procedure 12/13/21 07:06 Patient weight: morbidly obese Heart: regular rate and rhythm Lungs: clear to auscultation Airway: Mallampati scale class II Neurological: alert and oriented Last oral intake: >/= 8 hours ASA classification: III Emergent: no Anesthetic plan: proceed Anesthesia type
[2021-12-13 07:45] VITALS: BP 89/56; PULSE 95; RESP 22; O2SAT 97
[2021-12-13 07:55] VITALS: BP 118/83; PULSE 92; RESP 26; O2SAT 97
[2021-12-13 07:57] LABS: Glucose Point of Care 131 mg/dl (65-105)
[2021-12-13 08:05] VITALS: BP 117/70; PULSE 85; RESP 25; O2SAT 98
== END 2021-12-13 08:14 | disposition home or self-care (01) ==
PROVIDERS: PCP Physician Assistant; Visit Provider Internal Medicine Gastroenterology
PROC: 0DJD8ZZ Inspection of Lower Intestinal Tract, Via Natural or Artificial Opening Endoscopic (ICD-10-PCS; CPT 45378; principal; 2021-12-13 07:30)
DX: Z12.11 Encounter for screening for malignant neoplasm of colon (principal); K62.1 Rectal polyp; K57.30 Diverticulosis of large intestine without perforation or abscess without bleeding; E11.9 Type 2 diabetes mellitus without complications; I10 Essential (primary) hypertension; E78.00 Pure hypercholesterolemia, unspecified; K21.9 Gastro-esophageal reflux disease without esophagitis; G47.30 Sleep apnea, unspecified; F17.210 Nicotine dependence, cigarettes, uncomplicated; E66.01 Morbid (severe) obesity due to excess calories; Z68.39 Body mass index [BMI] 39.0-39.9, adult; Z79.899 Other long term (current) drug therapy; Z79.84 Long term (current) use of oral hypoglycemic drugs; Z79.4 Long term (current) use of insulin
CPT/HCPCS: 45380; 82948; 88305; J2704; J7120

== ENCOUNTER 2022-02-12 08:53 | Outpatient (CLI) | payer OTHER, SELFPAY ==
--- NOTE | ~2022-02-12 | MR_ITS ---
EXAMINATION: MR lumbar spine wo con DATE: 02/12/2022 09:30 INDICATION: Dorsalgia, unspecified. TECHNIQUE: Magnetic resonance imaging (MRI) of the lumbar spine was performed without intravenous con trast. Sequences included sagittal T2-weighted FSE, sagittal T2-weighted FS FSE, sagittal T1-weighted FSE, and axial T2-weighted FSE. COMPARISON: None FINDINGS: There is 9 degrees levocurvature of thoracolumbar spine. Vertebral body heights are normal. There are hemangiomas in T11, T12, and L1 vertebral bodies. Vertebral body heights are normal. There is mildly decreased disc height at T12-L1. The distal spinal cord signal intensity is normal. The co nus medullaris is at L1. The following disc levels are specifically discussed: L1-L2: The disc does not extend beyond the endplate margin. There is mild bilateral facet joint osteo arthritis. There is no neural foraminal stenosis. There is no central canal stenosis. L2-L3: The disc does not extend beyond the endplate margin. There is moderate bilateral facet joint o steoarthritis. There is no neural foraminal stenosis. There is no central canal stenosis. L3-L4: The disc does not extend beyond the endplate margin. There is moderate right and mild left fac et joint osteoarthritis. There is no neural foraminal stenosis. There is no central canal stenosis. L4-L5: The disc is bulging. There is severe bilateral facet joint osteoarthritis. There is mild bilat eral neural foraminal stenosis. There is mild central canal stenosis. L5-S1: The disc does not extend beyond the endplate margin. There is mild left facet joint osteoarthr itis. There is no neural foraminal stenosis. There is no central canal stenosis. IMPRESSION: 1. Mild lumbar spondylosis. Reviewed, dictated and finalized at location A. IMPRESSION: 1. Mild lumbar spondylosis.
== END 2022-02-12 08:54 | disposition home or self-care (01) ==
LOC: ANHIMG 08:54
PROVIDERS: PCP Physician Assistant; Visit Provider Physician Assistant
DX: M47.896 Other spondylosis, lumbar region (principal)
CPT/HCPCS: 72148

== ENCOUNTER 2022-09-03 08:17 | Outpatient (CLI) | payer OTHER, SELFPAY ==
[2022-09-03 09:05] LABS: Basophils Percent Auto 0.4 % (0.2-1.2); Eosinophils Absolute Auto 0.2 K/mm3 (0-0.3); Eosinophils Percent Auto 2.4 % (0-4.4); Hematocrit 45.3 % (42.0-52.0); Hemoglobin 14.9 g/dL (14.0-18.0); Immature Granulocyte Absolute 0.05 K/mm3 (0.00-0.031); Immature Granulocyte Percent A 0.5 % (0-0.5); Lymphocytes Absolute Auto 1.89 K/mm3 (0.9-3.2); Lymphocytes Percent Auto 20.4 % (18.3-44.2); Mean Corpuscular HGB Conc 32.9 g/dl (32-36); Mean Corpuscular Hemoglobin 32.1 pg (26-34); Mean Corpuscular Volume 97.6 fl (80-100); Mean Platelet Volume 9.9 fl (7.4-10.4); Monocytes Percent Auto 10.5 % (2.6-8.5); Neutrophils Absolute Auto 6.1 K/mm3 (1.3-6.7); Neutrophils Percent Auto 65.8 % (45.5-73.1); Platelet Count Result 230 k/mm3 (150-375); Red Blood Count 4.64 M/mm3 (4.6-6.20); Red Cell Distribution Width 12.4 % (11.5-14.5); White Blood Count 9.3 K/mm3 (4.5-10.0)
[2022-09-03 09:18] LABS: Alanine Aminotransferase 51 U/L (6-50); Albumin Level 3.9 g/dL (3.5-5.1); Alkaline Phosphatase 89 U/L (38-126); Anion Gap 8 mmol/L (8-16); Aspartate Amino Transferase 31 U/L (17-59); Bilirubin,Total 0.6 mg/dL (0.2-1.3); Blood Urea Nitrogen 15 mg/dL (9-20); Carbon Dioxide 31 mmol/L (22-30); Chloride 99 mmol/L (98-107); Cholesterol 148 mg/dL (0-200); Estimated Glomerular Filt Rate > 60; Glucose 106 mg/dL (65-110); HDL Direct 28 mg/dL; Potassium 4.6 mmol/L (3.4-5.0); Sodium 138 mmol/L (137-145); Triglycerides 77 mg/dL (<150)
[2022-09-03 09:31] LABS: LDL Cholesterol Direct 94 mg/dL
[2022-09-03 09:51] LABS: Prostate Specific Antigen 2.2 ng/mL (< OR = 4.0)
[2022-09-03 10:29] LABS: Folic Acid > 20.0 ng/mL (2.76->20)
== END 2022-09-03 08:18 | disposition home or self-care (01) ==
PROVIDERS: PCP Physician Assistant; Referring Provider Nurse Practitioner Family; Visit Provider Physician Assistant
DX: Z00.00 Encounter for general adult medical examination without abnormal findings (principal); E11.9 Type 2 diabetes mellitus without complications; Z12.5 Encounter for screening for malignant neoplasm of prostate
CPT/HCPCS: 36415; 80053; 80061; 82607; 82746; 84153; 84443; 85025; G0103

== ENCOUNTER 2022-10-21 14:08 | Emergency (ER) | payer OTHER, SELFPAY ==
[2022-10-21 14:24] VITALS: BP 130/71; PULSE 99; RESP 16; TEMP 36.3; O2SAT 96
--- NOTE | 2022-10-21 14:46 | ED.URI ---
HPI - URI/Sore Throat General Chief Complaint: Upper Respiratory Infection Stated Complaint: Sinus Time Seen by Provider: 10/21/22 14:46 Source: patient Mode of arrival: ambulatory Limitations: no limitations History of Present Illness HPI Narrative: 62-year-old male presents with complaint of cough, chest congestion for 2-3 days. Reports last week he was treated with a sinus infection with Augmentin. Reports that he only felt better for a few days before cough started. Afebrile. No chest pain or shortness of breath. Is taking [id number] Mucinex and Tessalon Perles. Denies nausea vomiting diarrhea. All systems reviewed and negative except as noted above. Related Data Home Medications Medication Instructions Recorded Confirmed aspirin 81 mg tablet,delayed 81 mg PO DAILY 09/24/19 10/13/22 release (Adult Low Dose Aspirin) multivitamin 1 tablet PO DAILY 09/24/19 10/13/22 tadalafil 20 mg tablet 20 mg PO DAILY PRN Sexual Activity 11/29/21 10/13/22 Claritin 10/21/22 Allergies Allergy/AdvReac Type Severity Reaction Status Date / Time No Known Allergies Allergy Verified 10/21/22 14:14 Review of Systems Review of Systems: CONSTITUTIONAL: Denies fever, chills, or sweats. EYES: Denies visual changes, redness, or discharge. ENT: Denies rhinorrhea, congestion, sore throat, or otalgia. CARDIOVASCULAR: Denies chest pain, palpitations, or edema. RESPIRATORY: Reports cough, chest congestion. Denies dyspnea. GASTROINTESTINAL: Denies abdominal pain, nausea, vomiting, or diarrhea. GENITOURINARY: Denies dysuria or hematuria. SKIN: Denies rash or itching. MUSCULOSKELETAL: Denies back pain, joint pain, or myalgia. NEUROLOGIC: Denies headache, numbness, or weakness. PSYCHIATRIC: Denies anxiety or depression. All other systems reviewed are negative, except as documented in HPI. [facility] Past Medical History Medical History (Updated 10/21/22 @ 14:58 by Brandie Caicedo NP) Bronchitis Carpal tunnel syndrome of left wrist GERD (gastroesophageal reflux disease) History of colon polyps HTN (hypertension) Hypercholesterolemia Kidney stone Lumbar spondylosis Pneumonia Sleep apnea Type 2 diabetes mellitus Surgical History Surgical History History of carpal tunnel release 1990 Hx of tonsillectomy Infected epidermoid cyst Family History Family History Father Family history of suicide, Onset Age: 62 Patient's father is , Onset Age: 62 Sibling Patient's sister is in good health Patient's brother is in good health Family history of lupus erythematosus Patient's sister is Mother Family history of Alzheimer's disease Patient's mother is Sibling Skin cancer (melanoma) Social History Social History Smoking packs per day: 1 Smoking cigarettes per day: 20.0 Years smoked: 40 Smoking pack-years: 40.00 Smoking status: Current every day smoker Tobacco type: cigarettes Second hand tobacco smoke exposure: No Alcohol intake: former Substance use: never Lack of Transportation: No Lack of Food: Never True Current Housing: I Have Housing Concerned About Future Housing: No Difficulty Paying Gas/Electric Bills: No Difficulty Paying for Meds: No Currently Unemployed: No Education: Trade/Vocational Certificate Difficulty w/ Childcare or Family Care: No Gender identity (if verbalized by the patient): Male Sexual Orientation (if Verbalized by the Patient): Straight or Heterosexual Spiritual care concerns: No Comments At time of signature, agree with nursing past medical, surgical, social and family history. There is no relevant family history pertinent to the presenting complaint. Exam Narrative: GENERAL: This is a well-nourished, well-develo
== END 2022-10-21 15:00 | disposition home or self-care (01) ==
PROVIDERS: Emergency Provider Nurse Practitioner Family; PCP Physician Assistant
DX: J06.9 Acute upper respiratory infection, unspecified (principal); Z87.891 Personal history of nicotine dependence; K21.9 Gastro-esophageal reflux disease without esophagitis; I10 Essential (primary) hypertension; E78.00 Pure hypercholesterolemia, unspecified; M47.816 Spondylosis without myelopathy or radiculopathy, lumbar region; E11.9 Type 2 diabetes mellitus without complications; Z79.82 Long term (current) use of aspirin
CPT/HCPCS: 99213; G0463

== ENCOUNTER 2023-05-13 10:22 | Emergency (ER) | payer OTHER, SELFPAY ==
[2023-05-13 10:23] VITALS: BP 138/75; PULSE 96; RESP 16; TEMP 36.8; O2SAT 98
[2023-05-13] MEDS: LIDO 1%/EPINEPHRINE 1:100,000 20 ML VIAL 5 ML INFILTRATE (10:54)
--- NOTE | 2023-05-13 12:04 | ED.SKABFB ---
HPI - Skin/Abscess/Foreign Bdy General Chief complaint: Skin/Abscess/Foreign Body Stated complaint: cyst on back Time Seen by Provider: 05/13/23 10:29 Source: patient Mode of arrival: ambulatory Limitations: no limitations History of Present Illness HPI narrative: 62-year-old male presents today with concerns of an infected cyst to left mid/upper back. Patient states approximately a year or so ago he had a sebaceous cyst removed from his upper back and this area has started to come back recently. Over the last couple days he has noticed some redness and some increased pain. Area of swelling has increased in size. Yesterday he thought he had some chills but he took his temperature and was without fever. States he thought the area was warm to touch. No drainage noted. Denies fevers, body aches. Related Data Home Medications Medication Instructions Recorded Confirmed multivitamin 1 tablet PO DAILY 09/24/19 03/28/23 cetirizine 10 mg tablet (Zyrtec) 10 mg PO DAILY PRN 03/07/23 03/28/23 Allergies Allergy/AdvReac Type Severity Reaction Status Date / Time No Known Allergies Allergy Verified 05/13/23 10:23 Review of Systems Review of Systems: All systems reviewed & are unremarkable except as noted in HPI and below ENT: Reports as per HPI Cardiovascular: Cardiovascular: Reports as per HPI Respiratory: Respiratory: Reports as per HPI Gastrointestinal: Gastrointestinal: Reports as per HPI Musculoskeletal: Musculoskeletal: Reports as per HPI Integumentary/Breasts: Skin/Breast: Reports as per HPI Neurologic: Reports as per HPI Psychiatric: Psychiatric: Reports as per HPI [facility] Past Medical History Medical History Bilateral hearing loss due to cerumen impaction Bronchitis Carpal tunnel syndrome of left wrist GERD (gastroesophageal reflux disease) History of colon polyps HTN (hypertension) Hypercholesterolemia Kidney stone Lumbar spondylosis Pneumonia Sleep apnea Type 2 diabetes mellitus Surgical History Surgical History History of carpal tunnel release 1990 Hx of tonsillectomy Infected epidermoid cyst Family History Family History Father Family history of suicide, Onset Age: 62 Patient's father is , Onset Age: 62 Depression Heart disease Sibling Patient's sister is in good health Patient's brother is in good health Family history of lupus erythematosus Patient's sister is Mother Family history of Alzheimer's disease Patient's mother is Breast cancer Diabetes mellitus Sibling Skin cancer (melanoma) Social History Social History Smoking packs per day: 1 Smoking cigarettes per day: 20.0 Years smoked: 40 Smoking pack-years: 40.00 Smoking status: Former smoker Tobacco type: cigarettes Second hand tobacco smoke exposure: No Alcohol intake: former Substance use: never Lack of Transportation: No Lack of Food: Never True Current Housing: I Have Housing Concerned About Future Housing: No Difficulty Paying Gas/Electric Bills: No Difficulty Paying for Meds: No Currently Unemployed: No Education: Trade/Vocational Certificate Difficulty w/ Childcare or Family Care: No Living arrangements: with family Occupation/Education: occupation Gender identity (if verbalized by the patient): Male Sexual Orientation (if Verbalized by the Patient): Straight or Heterosexual Spiritual care concerns: No Exam Const: General: cooperative, healthy appearing, comfortable, no acute distress and well developed Orientation/consciousness: patient oriented x3 HENMT: Head: normal to inspection Eyes: General: appearance normal, both eyes and all related structures Resp: Effort & In
[2023-05-13 12:20] VITALS: BP 131/76; PULSE 87; RESP 16; O2SAT 99
== END 2023-05-13 12:21 | disposition home or self-care (01) ==
PROVIDERS: Emergency Provider Nurse Practitioner Family; PCP Physician Assistant
DX: L02.212 Cutaneous abscess of back [any part, except buttock and flank] (principal); I10 Essential (primary) hypertension; E78.00 Pure hypercholesterolemia, unspecified; E11.9 Type 2 diabetes mellitus without complications; K21.9 Gastro-esophageal reflux disease without esophagitis; G47.30 Sleep apnea, unspecified; Z87.442 Personal history of urinary calculi; Z86.010 Personal history of colon polyps; Z87.891 Personal history of nicotine dependence; Z79.84 Long term (current) use of oral hypoglycemic drugs; Z79.4 Long term (current) use of insulin
CPT/HCPCS: 10060; 87070; 87205; 99283

== ENCOUNTER 2023-09-02 08:27 | Outpatient (CLI) | payer OTHER, SELFPAY ==
[2023-09-02 08:55] LABS: Alanine Aminotransferase 108 U/L (6-50); Albumin Level 3.7 g/dL (3.5-5.1); Alkaline Phosphatase 99 U/L (38-126); Anion Gap 7 mmol/L (8-16); Aspartate Amino Transferase 52 U/L (17-59); Bilirubin,Total 0.6 mg/dL (0.2-1.3); Blood Urea Nitrogen 19 mg/dL (9-20); Carbon Dioxide 29 mmol/L (22-30); Chloride 99 mmol/L (98-107); Cholesterol 153 mg/dL (0-200); Estimated Glomerular Filt Rate > 60; Glucose 242 mg/dL (65-110); HDL Direct 26 mg/dL; Potassium 4.7 mmol/L (3.4-5.0); Sodium 135 mmol/L (137-145); Triglycerides 98 mg/dL (<150)
[2023-09-02 09:03] LABS: Hemoglobin A1C 9.5 % (<5.7)
[2023-09-02 09:06] LABS: LDL Cholesterol Direct 98 mg/dL
== END 2023-09-02 08:28 | disposition home or self-care (01) ==
PROVIDERS: PCP Physician Assistant; Visit Provider Physician Assistant
DX: E11.9 Type 2 diabetes mellitus without complications (principal)
CPT/HCPCS: 36415; 80053; 80061; 83036

== ENCOUNTER 2023-10-16 12:21 | Emergency (ER) | payer OTHER, SELFPAY ==
[2023-10-16 12:22] VITALS: BP 147/71; PULSE 108; RESP 20; TEMP 36.4; O2SAT 97
[2023-10-16] MEDS: SODIUM CHLORIDE 0.9% IV 1,000 ML 999 ML IV CONT (13:02)
[2023-10-16] MEDS: ONDANSETRON INJ 4 MG/2 ML VIAL IV PUSH (13:02)
--- NOTE | 2023-10-16 13:30 | ED.GENADULT ---
HPI - General Adult General Chief complaint: Upper Respiratory Infection Stated complaint: COVID+ Time Seen by Provider: 10/16/23 12:36 History of Present Illness HPI narrative: Patient is year old male who presents the ER concerns for dehydration. Reports he has been feeling ill for the last 5 days. Had some diarrhea and emesis today and last night. He time he eats he feels nauseated. He took a COVID test last night and was positive. No chest pain or chest pressure. Has mild fatigue and sweats. No alleviating factors. Has some dizziness with going from sitting to standing. Related Data Home Medications Medication Instructions Recorded Confirmed multivitamin 1 tablet PO DAILY 09/24/19 09/07/23 cetirizine 10 mg tablet (Zyrtec) 10 mg PO DAILY PRN 03/07/23 09/07/23 Allergies Allergy/AdvReac Type Severity Reaction Status Date / Time No Known Allergies Allergy Verified 09/07/23 08:14 Review of Systems Constitutional: Constitutional: Reports fatigue, Denies fever(s) and Reports weakness ENT: Reports dizziness, Reports nasal congestion and Reports sore throat Cardiovascular: Cardiovascular: Reports no additional cardiovascular complaints Respiratory: Respiratory: Reports no additional respiratory complaints Gastrointestinal: Gastrointestinal: Denies abdominal pain, Reports diarrhea, Reports nausea and Reports vomiting PMFSH Past Medical History Medical History Bilateral hearing loss due to cerumen impaction Bronchitis Carpal tunnel syndrome of left wrist GERD (gastroesophageal reflux disease) History of colon polyps HTN (hypertension) Hypercholesterolemia Kidney stone Lumbar spondylosis Pneumonia Sleep apnea Type 2 diabetes mellitus Surgical History Surgical History History of carpal tunnel release 1990 Hx of tonsillectomy Infected epidermoid cyst Family History Family History Father Family history of suicide, Onset Age: 62 Patient's father is , Onset Age: 62 Depression Heart disease Sibling Patient's sister is in good health Patient's brother is in good health Family history of lupus erythematosus Patient's sister is Mother Family history of Alzheimer's disease Patient's mother is Breast cancer Diabetes mellitus Sibling Skin cancer (melanoma) Social History Social History Smoking packs per day: 1 Smoking cigarettes per day: 20.0 Years smoked: 40 Smoking pack-years: 40.00 Smoking status: Former smoker Tobacco type: cigarettes Second hand tobacco smoke exposure: No Alcohol intake: former Substance use: never Lack of Transportation: No Lack of Food: Never True Current Housing: I Have Housing Concerned About Future Housing: No Difficulty Paying Gas/Electric Bills: No Difficulty Paying for Meds: No Currently Unemployed: No Education: Trade/Vocational Certificate Difficulty w/ Childcare or Family Care: No Living arrangements: with family Occupation/Education: occupation Gender identity (if verbalized by the patient): Male Sexual Orientation (if Verbalized by the Patient): Straight or Heterosexual Spiritual care concerns: No Exam Narrative: GENERAL: Well-appearing, well-nourished, and in no acute distress. HEAD: Normocephalic, atraumatic. ENT: Mucous membranes moist. CHEST: Clear to auscultation. No respiratory distress. HEART: Regular rate and rhythm. Normal peripheral pulses. ABDOMEN: Soft, nontender, nondistended. EXTREMITIES: Normal range of motion. No edema. SKIN: Warm, dry, no rash. NEURO: Alert and oriented x3. PSYCH: Normal mood and affect. Course Course Emergency Course: Zofran improved patient's symptoms. He is hydrat
== END 2023-10-16 13:46 | disposition home or self-care (01) ==
PROVIDERS: Emergency Provider Emergency Medicine; PCP Physician Assistant
DX: E86.0 Dehydration (principal); U07.1 COVID-19; I10 Essential (primary) hypertension; E78.00 Pure hypercholesterolemia, unspecified; K21.9 Gastro-esophageal reflux disease without esophagitis; E11.9 Type 2 diabetes mellitus without complications; G47.30 Sleep apnea, unspecified; M47.816 Spondylosis without myelopathy or radiculopathy, lumbar region; Z87.891 Personal history of nicotine dependence; Z79.84 Long term (current) use of oral hypoglycemic drugs; Z79.85 Long-term (current) use of injectable non-insulin antidiabetic drugs; Z79.4 Long term (current) use of insulin
CPT/HCPCS: 96361; 96374; 99284; J2405; J7030

== ENCOUNTER 2023-12-16 10:01 | Outpatient (CLI) | payer OTHER, SELFPAY ==
[2023-12-16 10:23] LABS: Basophils Percent Auto 0.7 % (0.2-1.2); Eosinophils Absolute Auto 0.1 K/mm3 (0-0.3); Eosinophils Percent Auto 2.6 % (0-4.4); Hematocrit 45.2 % (42.0-52.0); Immature Granulocyte Absolute 0.02 K/mm3 (0.00-0.031); Immature Granulocyte Percent A 0.4 % (0-0.5); Lymphocytes Absolute Auto 1.41 K/mm3 (0.9-3.2); Lymphocytes Percent Auto 25.8 % (18.3-44.2); Mean Corpuscular HGB Conc 33.2 g/dl (32-36); Mean Corpuscular Hemoglobin 31.8 pg (26-34); Mean Corpuscular Volume 95.8 fl (80-100); Mean Platelet Volume 9.7 fl (7.4-10.4); Monocytes Absolute Auto 0.6 K/mm3 (0.1-0.6); Monocytes Percent Auto 11.4 % (2.6-8.5); Neutrophils Absolute Auto 3.2 K/mm3 (1.3-6.7); Neutrophils Percent Auto 59.1 % (45.5-73.1); Platelet Count Result 186 k/mm3 (150-375); Red Blood Count 4.72 M/mm3 (4.6-6.20); White Blood Count 5.5 K/mm3 (4.5-10.0)
[2023-12-16 10:35] LABS: Alanine Aminotransferase 132 U/L (6-50); Albumin Level 3.8 g/dL (3.5-5.1); Alkaline Phosphatase 99 U/L (38-126); Anion Gap 4 mmol/L (8-16); Aspartate Amino Transferase 60 U/L (17-59); Bilirubin,Total 0.7 mg/dL (0.2-1.3); Blood Urea Nitrogen 20 mg/dL (9-20); Calcium 9.2 mg/dL (8.4-10.2); Carbon Dioxide 29 mmol/L (22-30); Chloride 98 mmol/L (98-107); Estimated Glomerular Filt Rate > 60; Glucose 267 mg/dL (65-110); Potassium 4.3 mmol/L (3.4-5.0); Sodium 131 mmol/L (137-145)
[2023-12-16 10:41] LABS: Hemoglobin A1C 9.6 % (<5.7)
[2023-12-16 11:03] LABS: Creatinine Urine 90.1 mg/dL
[2023-12-16 11:08] LABS: MALB Creatinine Ratio 14.7 mg/g (0-30); Microalbumin Urine Random 13.2 mg/L (0-16.7)
[2023-12-16 11:14] LABS: Prostate Specific Antigen 1.4 ng/mL (< OR = 4.0)
[2023-12-16 11:49] LABS: Folic Acid 13.2 ng/mL (2.76->20)
== END 2023-12-16 10:02 | disposition home or self-care (01) ==
LOC: ANHLAB 10:04
PROVIDERS: PCP Physician Assistant; Visit Provider Physician Assistant
DX: E11.9 Type 2 diabetes mellitus without complications (principal); R53.83 Other fatigue; Z12.5 Encounter for screening for malignant neoplasm of prostate
CPT/HCPCS: 36415; 80053; 82043; 82607; 82746; 83036; 84153; 84443; 85025; G0103

== ENCOUNTER 2024-03-30 08:27 | Outpatient (CLI) | payer OTHER, SELFPAY ==
--- NOTE | ~2024-03-30 | MR_ITS ---
MRI of the lumbar spine Clinical History: Radiculopathy Technique: Axial T2-weighted images, and sagittal T1-weighted, T2-weighted, and and T2 fat-sat images were acquired. COMPARISON: 02/12/2022 Findings: There is no fracture or subluxation of the lumbar spine. Osseous alignment is unchanged fro m prior exam. No suspicious bone marrow signal abnormality seen. Mild marrow heterogeneity is stable from prior exam. At L1-L2, there is no disc bulge or herniation. There is moderate facet arthropathy. No central canal stenosis or neural foraminal narrowing. At L2-L3, there is no significant disc bulge or herniation. There is moderate facet arthropathy. No c entral canal stenosis or neural foraminal narrowing. At L3-L4, there is no disc bulge or herniation. There is moderate facet arthropathy. No central canal stenosis or neural foraminal narrowing. At L4-L5, there is diffuse disc bulge and severe facet arthropathy. No nancy central canal stenosis. There is mild right neural foraminal narrowing. Left foramen preserved. At L5-S1, there is no disc bulge or herniation. There is mild facet arthropathy. No central canal robin nosis or neural foraminal narrowing. Paravertebral soft tissues are unremarkable. Impression: Mild degenerative spondylosis, as above. Reviewed, dictated and finalized at location . Impression: Mild degenerative spondylosis, as above.
== END 2024-03-30 08:28 | disposition home or self-care (01) ==
LOC: ANHIMG 08:27
PROVIDERS: PCP Physician Assistant; Visit Provider Physician Assistant
DX: M47.26 Other spondylosis with radiculopathy, lumbar region (principal)
CPT/HCPCS: 72148

== ENCOUNTER 2024-07-23 16:12 | Observation (INO) | payer OTHER, SELFPAY ==
--- NOTE | ~2024-07-23 | CT_ITS ---
EXAMINATION: CT brain wo con DATE: 07/23/2024 16:27 INDICATION: headache and blurred vision . TECHNIQUE: Computed tomography (CT) of the head was performed without intravenous contrast. The mA wa s adjusted according to patient size. Iterative reconstruction technique was employed. The dose-lengt h product was 681.00 mGy-cm. COMPARISON: 03/05/2015. FINDINGS: No acute intracranial hemorrhage or extra-axial fluid collection. No hydrocephalus, mass, or herniation. No acute ischemic infarct. Unremarkable dural venous sinus attenuation. No acute osseous abnormality. Left mastoid fluid, the remaining aerated spaces are clear. Mild atrophy and chronic white matter change. Atherosclerotic intracranial calcification. Bilateral c erumen impaction. IMPRESSION: No acute intracranial process. Reviewed, dictated and finalized at location K.
--- NOTE | ~2024-07-23 | MR_ITS ---
MRI of the brain Clinical History: Diplopia Technique: Axial and sagittal T1-weighted images were acquired. These were followed by axial T2-weigh key, diffusion weighted, gradient, and FLAIR images. Following intravenous administration of 20 cc Mu ltiHance gadolinium, T1-weighted fat-sat imaging was performed in the axial, coronal, and sagittal pl anes. Findings: There is no abnormal signal in the brain parenchyma. No acute infarct, intracranial hemorrh age, or mass lesion. Ventricles and subarachnoid spaces are unremarkable. Orbits are unremarkable. Paranasal sinuses and r ight mastoid are clear. There is mild left mastoid effusion. Major intracranial flow voids appear int act. Sagittal midline structures are intact. No abnormal postcontrast enhancement identified. IMPRESSION: No significant abnormality seen. Reviewed, dictated and finalized at [facility].
--- NOTE | ~2024-07-23 | MR_ITS ---
EXAMINATION: MRA neck wo/w con DATE: 07/24/2024 09:30 INDICATION: Diplopia TECHNIQUE: Magnetic resonance angiography (MRA) of the neck was performed without and with 20 mL Mult ihance intravenous contrast. Sequences included axial 2D-time of flight T1-weighted FSPGR and coronal T1-weighted FSPGR without and with intravenous contrast. COMPARISON: None. FINDINGS: No hemodynamic significant stenosis along the bilateral vertebral arteries. There is poor contrast en hancement of the bilateral common and extracranial internal carotid arteries with relatively uniform diffuse peripheral mild enhancement surrounding central low signal intensity which suggests this may be related to flow artifact. There is additional relatively symmetric mild peripheral high signal elva tral low signal at the bilateral carotid bulbs and the mhgy-mm-krbwlw and velocity dependent imaging which is also likely artifactual. No definitive hemodynamically significant stenosis. IMPRESSION: 1. Likely flow-related artifactual decreased signal at the bilateral carotid bulbs on the time-of-fli ght and velocity could sequences and throughout the extracranial common and internal carotid arteries on the postcontrast imaging. No definitive hemodynamic status and stenosis appreciated. Would consid er further evaluation of the carotid bulbs with ultrasound. Reviewed, dictated and finalized at location A. IMPRESSION: 1. Likely flow-related artifactual decreased signal at the bilateral carotid bu lbs on the ufre-cn-foyrxn and velocity could sequences and throughout the extra cranial common and internal carotid arteries on the postcontrast imaging. No de finitive hemodynamic status and stenosis appreciated. Would consider further ev aluation of the carotid bulbs with ultrasound.
--- NOTE | ~2024-07-23 | MR_ITS ---
MRA HEAD History: Diplopia Technique: 3D time of flight MRA of the head is performed. Findings: The right and left distal vertebral arteries and the basilar and posterior cerebral arterie s are normal. Right and left distal internal carotid arteries and anterior and middle cerebral arteri es are normal. There is no aneurysm, stenosis, or occlusion. Impression: No occlusion, stenosis, or aneurysm. Reviewed, dictated and finalized at location . Impression: No occlusion, stenosis, or aneurysm.
[2024-07-23 16:18] VITALS: BP 157/85; PULSE 95; RESP 16; TEMP 36.4; O2SAT 97
--- NOTE | 2024-07-23 18:40 | ED.HA ---
HPI - Headache General Chief Complaint: Headache <Katherine Swift PA-C - Last Filed: 07/24/24 09:50> Stated Complaint: headache. blurred vision <Katherine Swift PA-C - Last Filed: 07/24/24 09:50> Time Seen by Provider: 07/23/24 18:40 <Katherine Swift PA-C - Last Filed: 07/24/24 09:50> Focused HPI: This is a 64 year old male that presents to the ER for headaches. Ongoing since yesterday. Reports he has been having associated double vision which concerned him and prompted him to be seen. It goes away when he closes one eye. Does report he gets sinus headaches. Patient wears glasses. Denies fever, vomiting, numbness or weakness. GENERAL: Well-appearing, well-nourished, and in no acute distress. HEAD: Normocephalic, atraumatic. CHEST: Clear to auscultation. ?No respiratory distress. HEART: Regular rate and rhythm.? NEURO: ?Alert and oriented x3. Patient screened in triage and initial orders placed.? ?Additional care and disposition to be based upon?diagnostic testing and treatment. <Katherine Swift PA-C - Last Filed: 07/24/24 09:50> History of Present Illness HPI Narrative: Patient is 64-year-old gentleman presents emergency department with chief complaint of headaches the patient reports that Monday he started having headache woke up with it and had double vision the patient reports that the double vision goes away whenever he closes 1 eye patient denies fever denies weakness in the arms or legs denies ataxia, reports that he has no chest pain or shortness of breath. <Landry Martinez MD - Last Filed: 07/24/24 00:36> Related Data Home Medications: Home Medications Medication Instructions Recorded Confirmed multivitamin 1 tablet PO DAILY 09/24/19 07/24/24 cetirizine 10 mg tablet (Zyrtec) 10 mg PO DAILY PRN allergies 03/07/23 07/24/24 calcium carbonate 600 mg PO DAILY 07/24/24 07/24/24 cholecalciferol (vitamin D3) 50 50 mcg PO DAILY 07/24/24 07/24/24 mcg (2,000 unit) capsule (Vitamin D3) insulin glargine 100 unit/mL (3 50 unit subcut HS 07/24/24 07/24/24 mL) subcutaneous pen (Lantus Solostar U-100 Insulin) tizanidine 4 mg tablet 4 - 8 mg PO QHS PRN muscle 07/24/24 07/24/24 spasticity <Katherine Swift PA-C - Last Filed: 07/24/24 09:50> Allergies/Adverse Reactions: Allergies Allergy/AdvReac Type Severity Reaction Status Date / Time No Known Allergies Allergy Verified 03/07/24 08:11 <Katherine Swift PA-C - Last Filed: 07/24/24 09:50> Review of Systems Review of Systems: A 10 system review of systems was completed on the patient and is negative except for what is stated in the HPI. Nursing and ancillary documentation was reviewed. <Landry Martinez MD - Last Filed: 07/24/24 00:36> [facility] Past Medical History Medical History: Medical History Bilateral hearing loss due to cerumen impaction Bronchitis Carpal tunnel syndrome of left wrist GERD (gastroesophageal reflux disease) History of colon polyps HTN (hypertension) Hypercholesterolemia Kidney stone Lumbar spondylosis Pneumonia Sleep apnea Type 2 diabetes mellitus <Katherine Swift PA-C - Last Filed: 07/24/24 09:50> Surgical History Surgical History: Surgical History History of carpal tunnel release 1990 Hx of tonsillectomy Infected epidermoid cyst <Katherine Swift PA-C - Last Filed: 07/24/24 09:50> Family History Family History: Family History Father Family history of suicide, Onset Age: 62 Patient's father is , Onset Age: 62 Depression Heart disease Sibling Patient's sister is in good health Patient's brother is in good health Family history of lupus erythematosus Patient's sister is Mother Family history of A
--- NOTE | 2024-07-23 18:42 | ECG_ITS ---
Test Date: 2024-07-23 21:21:24 Measurements Intervals [place] Rate: 88 P: 74 [place]: 183 QRS: 104 QRSD: 84 T: 64 QT: 335 QTc: 406 Interpretive Statements SINUS RHYTHM MARKED RIGHT AXIS DEVIATION [QRS AXIS > 100] NONSPECIFIC T-WAVE ABNORMALITY ABNORMAL ECG No previous ECG available for comparison Electronically Signed On 07-24-2024 13:50:35 CDT by Salo Ott M.D.
[2024-07-23 21:35] LABS: Basophils Percent Auto 0.6 % (0.2-1.2); Eosinophils Absolute Auto 0.2 K/mm3 (0-0.3); Eosinophils Percent Auto 2.9 % (0-4.4); Hematocrit 45.4 % (42.0-52.0); Hemoglobin 15.6 g/dL (14.0-18.0); Immature Granulocyte Absolute 0.02 K/mm3 (0.00-0.031); Immature Granulocyte Percent A 0.3 % (0-0.5); Lymphocytes Absolute Auto 1.46 K/mm3 (0.9-3.2); Mean Corpuscular HGB Conc 34.4 g/dl (32-36); Mean Corpuscular Hemoglobin 32.9 pg (26-34); Mean Corpuscular Volume 95.8 fl (80-100); Mean Platelet Volume 9.8 fl (7.4-10.4); Monocytes Absolute Auto 0.7 K/mm3 (0.1-0.6); Monocytes Percent Auto 9.8 % (2.6-8.5); Neutrophils Absolute Auto 4.3 K/mm3 (1.3-6.7); Neutrophils Percent Auto 64.4 % (45.5-73.1); Platelet Count Result 200 k/mm3 (150-375); Red Blood Count 4.74 M/mm3 (4.6-6.20); Red Cell Distribution Width 12.1 % (11.5-14.5); White Blood Count 6.6 K/mm3 (4.5-10.0)
[2024-07-23 21:45] LABS: Alanine Aminotransferase 127 U/L (6-50); Albumin Level 4.1 g/dL (3.5-5.1); Alkaline Phosphatase 100 U/L (38-126); Anion Gap 5 mmol/L (4-12); Aspartate Amino Transferase 56 U/L (17-59); Bilirubin,Total 0.8 mg/dL (0.2-1.3); Blood Urea Nitrogen 21 mg/dL (9-20); Calcium 8.9 mg/dL (8.4-10.2); Carbon Dioxide 32 mmol/L (22-30); Chloride 96 mmol/L (98-107); Estimated CRCL calculation 135 ml/min; Estimated Glomerular Filt Rate > 60; Glucose 275 mg/dL (65-110); Potassium 4.4 mmol/L (3.4-5.0); Sodium 133 mmol/L (137-145)
[2024-07-23 21:46] LABS: INR 1.1; Partial Thromboplastin Time 30.1 Seconds (22.3-36.8); Prothrombin Time 14.3 Seconds (11.1-14.7)
[2024-07-23 21:57] LABS: Troponin I < 0.012 ng/mL (0.000-0.034)
[2024-07-23 22:04] VITALS: BP 138/76; PULSE 87; RESP 18; TEMP 36.1; O2SAT 96
[2024-07-24] VITALS (10 sets, daily range): BP systolic 120–133; BP diastolic 70–88; PULSE 72–91; RESP 12–24; TEMP 36.1–37; O2SAT 92–97
--- NOTE | 2024-07-24 | ECHO_ITS ---
Patient Info Name: Bernabe Santiago Age: 64 years : 1960 Gender: Male Ht: 72 in Wt: 308 lbs BSA: 2.73 m2 HR: 80 bpm BP: 122 / 71 mmHg Technical Quality: Poor Exam Date: 07/24/2024 3:28 PM Exam Location: Echo Lab Patient Status: Outpatient Admit Date: 07/24/2024 Staff Ordering Physician: Vladimir Valentine APRN Manager Country: Kira Donato RDCS Attending Provider: Georgette Potts PA-C Referring Physician: Serge ALLEN; Exam Type: CA echo dop bubble study w con Study Info Indications G45.9 - Transient cerebral ischemic attack, unspecified H53.2 - Diplopia Complete two-dimentional, color flow and Doppler transthoracic echocardiogram is performed with agitated saline and with contrast to opacify the left ventricle and to improve the delineation of the left ventricle endocardial borders. Contrast/Agitated Saline Contrast/Ag. Saline: Agitated Saline Amount: 14.00 ml Existing IV Access: Yes IV Access Condition: patent with no signs of infiltration Contrast/Ag. Saline: Definity Amount: 4.00 ml Existing IV Access: Yes IV Access Condition: patent with no signs of infiltration Reason for Poor Study: patient body habitus Summary 1. The left ventricular size and systolic function is grossly normal. LVEF is estimated at 55-60%. There is no LV thrombus on contrast images in this study. 2. The bubble study with Valsalva does not suggest shunt across the interatrial septum. Left Ventricle The left ventricular size and systolic function is grossly normal. LVEF is estimated at 55-60%. There is no LV thrombus on contrast images in this study. Right Ventricle The right ventricular size and systolic function is grossly normal. Left Atria Left atrial chamber dimension is normal. Right Atria Right atrial chamber dimension is normal. Atrial Septum The bubble study with Valsalva does not suggest shunt across the interatrial septum. Aortic Valve The aortic valve is probably trileaflet. There is no aortic stenosis or regurgitation. Pulmonic Valve The pulmonic valve is not well visualized. Mitral Valve The mitral valve is normal. There is trace mitral regurgitation. Tricuspid Valve The tricuspid valve is normal. There is trace tricuspid regurgitation. Pericardium/Pleural Pericardium is normal in appearance with no evidence for significant pericardial effusion. Left Ventricular Outflow Tract Name Value Normal LVOT 2D LVOT Diameter 2.1 cm LVOT Doppler LVOT Peak Gradient 4 mmHg LVOT Mean Gradient 2 mmHg LVOT VTI 20 cm LVOT VTI/AV VTI Ratio 1.0 LVOT Stroke Volume 68 ml LVOT CO 5.0 l/min LVOT CI 1.8 l/min/m2 Pulmonic Valve Name Value Normal PV Doppler
[2024-07-24 01:33] LABS: Glucose Point of Care 306 mg/dl (65-105)
--- NOTE | 2024-07-24 01:45 | ADMGEN ---
This patient, Bernabe Santiago, was admitted to [address] [facility] Surg Room 314-02. Patient oriented to hospital policies and general routines including ID bracelet, bed and alarms, visiting hours, pain management, procedures, bathroom and other care routines, personal items, smoking policy, room service/diet, and visiting hours. Information on how to activate the Rapid Response Team has been discussed. Patient is encouraged to report perceived risks to care and to ask questions if they do not understand what they are told or what they should do.
[2024-07-24] MEDS: INSULIN GLARGINE (*BKC) 100 UNITS/ML 50 UNITS SUB-Q (02:14)
--- NOTE | 2024-07-24 02:43 | PM.IMHP ---
H&P: HPI History of Present Illness Date/Time: 07/24/24 02:43 Chief Complaint: Diplopia Narrative: This is a 64-year-old male patient history of insulin-dependent diabetes presents to the emergency department with complaints of headaches since yesterday with the associated symptom double vision. Patient states that the double vision goes away when he closes 1 eye or the other. He denies any weakness or other focal neurologic changes. No history of similar symptoms. Patient evaluated in emergency department negative CT of the brain noncontrast. Differential diagnosis includes stroke or ocular nerve palsy. Neurology was consulted in the emergency department and requested MRI be obtained and patient be admitted. Lab show hyperglycemia as well as a likely reactive chronic hyponatremia. Patient has obstructive sleep apnea and will wear AutoPAP in the hospital. Review of Systems Review of Systems: All systems reviewed & are unremarkable except as noted in HPI and below PMFSH Past Medical History Medical History Bilateral hearing loss due to cerumen impaction Bronchitis Carpal tunnel syndrome of left wrist GERD (gastroesophageal reflux disease) History of colon polyps HTN (hypertension) Hypercholesterolemia Kidney stone Lumbar spondylosis Pneumonia Sleep apnea Type 2 diabetes mellitus Surgical History Surgical History History of carpal tunnel release 1990 Hx of tonsillectomy Infected epidermoid cyst Family History Family History Father Family history of suicide, Onset Age: 62 Patient's father is , Onset Age: 62 Depression Heart disease Sibling Patient's sister is in good health Patient's brother is in good health Family history of lupus erythematosus Patient's sister is Mother Family history of Alzheimer's disease Patient's mother is Breast cancer Diabetes mellitus Sibling Skin cancer (melanoma) Social History Social History Smoking packs per day: 1 Smoking cigarettes per day: 20.0 Years smoked: 40 Smoking pack-years: 40.00 Smoking status: Former smoker Tobacco type: e-cigarettes/vaping Second hand tobacco smoke exposure: No Smoking end date: 11/07/22 Additional smoking assessment comments: former cigarette consumption; current daily vaping Alcohol intake: former Substance use: never Do You Feel Safe in your Home?: Yes Lack of Transportation: No Lack of Food: Never True Current Housing: I Have Housing Concerned About Future Housing: No Difficulty Paying Gas/Electric Bills: No Difficulty Paying for Meds: No Currently Unemployed: No Education: Trade/Vocational Certificate Difficulty w/ Childcare or Family Care: No Living arrangements: with family Occupation/Education: occupation Gender identity (if verbalized by the patient): Male Sexual Orientation (if Verbalized by the Patient): Straight or Heterosexual Spiritual care concerns: No Meds Home Medications and Allergies Home Medications Medication Instructions Recorded Confirmed Type multivitamin 1 tablet PO DAILY 09/24/19 07/24/24 History blood sugar diagnostic (OneTouch #400 ea 03/03/21 07/24/24 Rx Verio test strips) blood-glucose meter (SmoveTouch #1 ea 03/03/21 07/24/24 Rx Verio Flex Meter) lancets 33 gauge (OneTouch Delica #400 ea 03/03/21 07/24/24 Rx Lancets) blood-glucose sensor (Dexcom G7 #3 ea 12/05/22 07/24/24 Rx Sensor device) pen needle, diabetic 32 gauge x #100 ea 02/14/23 07/24/24 Rx 5/32 (BD Tatiana 2nd Gen Pen Needle) cetirizine 10 mg tablet (Zyrtec) 10 mg PO DAILY PRN allergies 03/07/23 07/24/24 History lisinopril 10 1 tablet PO DAILY #90 tabs 03/13/24
[2024-07-24] MEDS: ASPIRIN 81 MG CHEWABLE TABLET 324 MG PO (05:51)
[2024-07-24] MEDS: TIZANIDINE HCL 4 MG TABLET PO ×2 (06:02→20:03)
[2024-07-24 06:56] LABS: Basophils Percent Auto 0.3 % (0.2-1.2); Eosinophils Absolute Auto 0.2 K/mm3 (0-0.3); Eosinophils Percent Auto 3.7 % (0-4.4); Hematocrit 42.6 % (42.0-52.0); Hemoglobin 14.5 g/dL (14.0-18.0); Immature Granulocyte Absolute 0.02 K/mm3 (0.00-0.031); Immature Granulocyte Percent A 0.3 % (0-0.5); Lymphocytes Absolute Auto 1.34 K/mm3 (0.9-3.2); Lymphocytes Percent Auto 20.7 % (18.3-44.2); Mean Corpuscular Hemoglobin 32.7 pg (26-34); Mean Corpuscular Volume 96.2 fl (80-100); Mean Platelet Volume 9.8 fl (7.4-10.4); Monocytes Absolute Auto 0.7 K/mm3 (0.1-0.6); Monocytes Percent Auto 10.7 % (2.6-8.5); Neutrophils Absolute Auto 4.2 K/mm3 (1.3-6.7); Neutrophils Percent Auto 64.3 % (45.5-73.1); Platelet Count Result 187 k/mm3 (150-375); Red Blood Count 4.43 M/mm3 (4.6-6.20); Red Cell Distribution Width 12.1 % (11.5-14.5); White Blood Count 6.5 K/mm3 (4.5-10.0)
[2024-07-24 07:05] LABS: Hemoglobin A1C 11.5 % (<5.7)
[2024-07-24 07:12] LABS: Alanine Aminotransferase 115 U/L (6-50); Albumin Level 3.5 g/dL (3.5-5.1); Alkaline Phosphatase 85 U/L (38-126); Anion Gap 4 mmol/L (4-12); Aspartate Amino Transferase 56 U/L (17-59); Bilirubin,Total 0.9 mg/dL (0.2-1.3); Blood Urea Nitrogen 20 mg/dL (9-20); Calcium 8.4 mg/dL (8.4-10.2); Carbon Dioxide 31 mmol/L (22-30); Chloride 98 mmol/L (98-107); Estimated CRCL calculation 135 ml/min; Estimated Glomerular Filt Rate > 60; Glucose 270 mg/dL (65-110); Potassium 4.2 mmol/L (3.4-5.0); Sodium 133 mmol/L (137-145)
[2024-07-24 07:13] LABS: Cholesterol 179 mg/dL (0-200); HDL Direct 24 mg/dL; Triglycerides 150 mg/dL (<150)
[2024-07-24 07:24] LABS: LDL Cholesterol Direct 114 mg/dL
[2024-07-24 08:09] LABS: Glucose Point of Care 288 mg/dl (65-105)
--- NOTE | 2024-07-24 08:42 | PM.IMPN ---
Progress Note: A&P Assessment and Plan (1) 3rd nerve palsy, partial: Qualifiers: Laterality: left Qualified Code(s): H49.02 - Third [oculomotor] nerve palsy, left eye Code(s): H49.00 - Third [oculomotor] nerve palsy, unspecified eye Status: Acute Assessment and Plan: Double vision with headache, possible etiology includes underlying stroke vs diabetic eye vs other - Head CT: no acute intracranial process - Neurology consulted in ER recommended admission with MRI to r/o acute stroke - MRI/MRA: No significant abnormality seen. No occlusion, stenosis, or aneurysm. - Neck MRA: Likely flow-related artifactual decreased signal at the bilateral carotid bulbs on the xdiy-my-eplihl and velocity could sequences and throughout the extracranial common and internal carotid arteries on the postcontrast imaging. No definitive hemodynamic status and stenosis appreciated. Would consider further evaluation of the carotid bulbs with ultrasound. Spoke with Dr. Harman and he states no US is required. - Echo with bubble study ordered - Lipid panel WNL, patient intolerant to statin therapy per history, on Lovaza (2) Type 2 diabetes mellitus: Qualifiers: Diabetes mellitus complication status: without complication Diabetes mellitus usp insulin use: with usp use Qualified Code(s): E11.9 - Type 2 diabetes mellitus without complications; Z79.4 - penitentiary (current) use of insulin Code(s): E11.9 - Type 2 diabetes mellitus without complications Status: Acute Assessment and Plan: - hypoglycemia protocol - POC blood glucose ACHS - home medication - lantus 50 units HS, metformin 1000 mg BID - correct regimen ordered - increased home lantus to 56 units, remains on high dose TIDWM, metformin on hold during admission - A1C 11.5 on 07/24 - If stroke workup negative, patient will need eye exam (3) RITIKA (obstructive sleep apnea): Code(s): G47.33 - Obstructive sleep apnea (adult) (pediatric) Status: Acute Assessment and Plan: AutoPAP for use while hospitalized (4) Headache: Code(s): R51.9 - Headache, unspecified Status: Acute Assessment and Plan: Treat as needed, likely caused by diplopia (5) Statin intolerance: Code(s): Z78.9 - Other specified health status Status: Acute Assessment and Plan: Lipid panel WNL (6) HTN (hypertension): Code(s): I10 - Essential (primary) hypertension Status: Acute Assessment and Plan: Chronic, remains stable without - hold lisinopril/hctz due to chronic hyponatremia (7) Chronic hyponatremia: Code(s): E87.1 - Hypo-osmolality and hyponatremia Status: Acute Assessment and Plan: Chronic mild hyponatremia which is affected by glucose levels and likely due to lisinopril/hctz as antihypertensive therapy Time Spent With Patient Time with patient: 25 - 35 minutes Subjective Date/time seen: 07/24/24 08:42 Interval history: 64-year-old male patient history of insulin-dependent diabetes and RITIKA on CPAP presents to the emergency department with complaints of headaches since yesterday with the associated symptom double vision. Patient is pleasant sitting up in bed. He states that his double vision has improved some, but he continues to note abnormal visuals especially with his left eye. He denies any headache or vision loss. He does note that the vision has improved with his insulin dosing. He states that he has been taking his medications as prescribed, but he has been eating worse as of late and recently retired so he is not as active. Will increase his lantus to 56 units given that he continues to be hyperglycemic into the 300s. Patient was evaluated by neurology today who agrees that this is likely a dibatic 3rd nerve palsy and that the patient will need to follow up with his sas architect. Patient denies chest pain, shortness of breath, nausea/vomiting and abdomi
[2024-07-24] MEDS: INSULIN ASPART (*BKC) 100 UNITS/ML SUB-Q ×3 (09:59→17:15)
[2024-07-24] MEDS: MULTIVITAMINS THERAPEUTIC TAB (*BKC) 1 TABLET PO (10:03)
[2024-07-24] MEDS: ENOXAPARIN 40 MG/0.4 ML SYRINGE SUB-Q ×2 (10:03→20:55)
[2024-07-24] MEDS: CHOLECALCIFEROL 1,000 UNITS TABLET 2000 UNITS PO (10:04)
[2024-07-24] MEDS: CALCIUM CARBONATE (OSCAL) 500 MG TABLET PO (10:04)
[2024-07-24] MEDS: OMEGA 3 POLYUNSAT FATTY ACIDS 1 GM CAP PO ×2 (10:04→16:49)
[2024-07-24 11:40] LABS: Glucose Point of Care 260 mg/dl (65-105)
--- NOTE | 2024-07-24 12:35 | WPDNEURCNPN ---
Assessment and Plan Assessment and plan (1) Diplopia: Code(s): H53.2 - Diplopia Status: Acute (2) 3rd nerve palsy, partial: Qualifiers: Laterality: left Qualified Code(s): H49.02 - Third [oculomotor] nerve palsy, left eye Code(s): H49.00 - Third [oculomotor] nerve palsy, unspecified eye Status: Acute Plan 1. 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 Diabetes mellitus 3. All other comorbid conditions patient was advised to be very aggressive in the control of the blood sugar, symptomatology is not related to the stroke, but it does create a warning the future complications all the pros and cons of diabetes and the complications were discussed with he can follow with his family physician's and all of the medication accordingly Consult date: 07/24/24 HPI: Bernabe Santiago is a 64 year old male admitted to the hospital through the emergency room for the complaints of headache of [id number] duration in association with double vision which completely disappears when he closes his eyes, at the time of visit to the ER patient had been taking cetirizine 10mg daily, insulin 50units subQ HS, and tizanidine 4 to 8 mg HS p.r.n.. He is not allergic to any medication. He has ongoing history of 1. Bilateral hearing loss, left carpal tunnel syndrome, GERD, hypertension, hypercholesterolemia, lumbar spondylosis, sleep apnea, and type 2 diabetes mellitus. Has undergone carpal tunnel release in 1990, has history of years smoked 40 with smoking pack years of 40 but former smoker and at present E cigarettes vaping also former alcohol intake initial exam in the emergency room was nonfocal with normal vital signs except blood pressure 157/85, negative CT scan of the head, normal EKG, normal CBC with BMP with blood sugar of 270 but otherwise labs unremarkable. Initial CT scan of the head negative for the bleed hydrocephalus or any tumor, subsequently brain MRI is normal, and MRA of the brain not significant PMFSH Past Medical History Medical History Bilateral hearing loss due to cerumen impaction Bronchitis Carpal tunnel syndrome of left wrist GERD (gastroesophageal reflux disease) History of colon polyps HTN (hypertension) Hypercholesterolemia Kidney stone Lumbar spondylosis Pneumonia Sleep apnea Type 2 diabetes mellitus Surgical History Surgical History History of carpal tunnel release 1990 Hx of tonsillectomy Infected epidermoid cyst Family History Family History Father Family history of suicide, Onset Age: 62 Patient's father is , Onset Age: 62 Depression Heart disease Sibling Patient's sister is in good health Patient's brother is in good health Family history of lupus erythematosus Patient's sister is Mother Family history of Alzheimer's disease Patient's mother is Breast cancer Diabetes mellitus Sibling Skin cancer (melanoma) Social History Social History Smoking packs per day: 1 Smoking cigarettes per day: 20.0 Years smoked: 40 Smoking pack-years: 40.00 Smoking status: Former smoker Tobacco type: e-cigarettes/vaping Second hand tobacco smoke exposure: No Smoking end date: 11/07/22 Additional smoking assessment comments: former cigarette consumption; current daily vaping Alcohol intake: former Substance use: never Do You Feel Safe in your Home?: Yes Lack of Transportation: No Lack of Food: Never True Current Housing: I Have Housing Concerned About Future Housing: No Difficulty Paying Gas/Electric Bills: No Difficulty Paying for Meds: No Currently Unemployed: No Education: Trade/Vocational Certificate Difficulty w/ Childcare or Family Care: No Living arrangements: with family Occupation/Edu
[2024-07-24] MEDS: PERFLUTREN LIPID MICROSPHERES 1.5 ML VIAL DILUTED TO 10 ML TOTAL VOLUME IV PUSH (16:26)
--- NOTE | 2024-07-24 16:26 | IVDEFINITY ---
Prior to administration of IV Definity the patient was educated on the risks and benefits of the imaging enhancing agent including potential adverse side effects. The patient verbalized understanding. Allergies were verified. No exclusion criteria were identified and at least one of the following inclusion criteria were met: 1) physician request, 2) patient technically difficult to image (per the [place] [employer]ocardi[employer] guidelines of two or more segments not discernable within the apical view), or 3) questionable left ventricular function. ?
[2024-07-24 17:06] LABS: Glucose Point of Care 221 mg/dl (65-105)
[2024-07-24] MEDS: INSULIN GLARGINE (*BKC) 100 UNITS/ML 56 UNITS SUB-Q (20:54)
[2024-07-24 21:01] LABS: Glucose Point of Care 262 mg/dl (65-105)
[2024-07-25] VITALS (7 sets, daily range): BP systolic 133; BP diastolic 80; PULSE 54–66; RESP 16–22; TEMP 36.1; O2SAT 94–97; BMI 41.8
[2024-07-25 07:13] LABS: Basophils Percent Auto 0.7 % (0.2-1.2); Eosinophils Absolute Auto 0.2 K/mm3 (0-0.3); Eosinophils Percent Auto 3.3 % (0-4.4); Hematocrit 44.7 % (42.0-52.0); Hemoglobin 15.2 g/dL (14.0-18.0); Immature Granulocyte Absolute 0.02 K/mm3 (0.00-0.031); Immature Granulocyte Percent A 0.4 % (0-0.5); Lymphocytes Absolute Auto 1.23 K/mm3 (0.9-3.2); Lymphocytes Percent Auto 22.6 % (18.3-44.2); Mean Corpuscular Hemoglobin 32.8 pg (26-34); Mean Corpuscular Volume 96.3 fl (80-100); Monocytes Absolute Auto 0.6 K/mm3 (0.1-0.6); Monocytes Percent Auto 10.6 % (2.6-8.5); Neutrophils Absolute Auto 3.4 K/mm3 (1.3-6.7); Neutrophils Percent Auto 62.4 % (45.5-73.1); Platelet Count Result 197 k/mm3 (150-375); Red Blood Count 4.64 M/mm3 (4.6-6.20); White Blood Count 5.5 K/mm3 (4.5-10.0)
[2024-07-25 07:26] LABS: Alanine Aminotransferase 151 U/L (6-50); Albumin Level 3.7 g/dL (3.5-5.1); Alkaline Phosphatase 92 U/L (38-126); Anion Gap 5 mmol/L (4-12); Aspartate Amino Transferase 85 U/L (17-59); Bilirubin,Total 0.9 mg/dL (0.2-1.3); Blood Urea Nitrogen 14 mg/dL (9-20); Calcium 8.9 mg/dL (8.4-10.2); Carbon Dioxide 34 mmol/L (22-30); Chloride 96 mmol/L (98-107); Estimated CRCL calculation 119 ml/min; Estimated Glomerular Filt Rate > 60; Glucose 181 mg/dL (65-110); Potassium 3.9 mmol/L (3.4-5.0); Sodium 135 mmol/L (137-145)
[2024-07-25 08:24] LABS: Glucose Point of Care 203 mg/dl (65-105)
[2024-07-25] MEDS: CALCIUM CARBONATE (OSCAL) 500 MG TABLET PO (09:00)
[2024-07-25] MEDS: MULTIVITAMINS THERAPEUTIC TAB (*BKC) 1 TABLET PO (09:00)
[2024-07-25] MEDS: ASPIRIN 81 MG CHEWABLE TABLET PO (09:01)
[2024-07-25] MEDS: ENOXAPARIN 40 MG/0.4 ML SYRINGE SUB-Q (09:01)
[2024-07-25] MEDS: OMEGA 3 POLYUNSAT FATTY ACIDS 1 GM CAP PO (09:01)
[2024-07-25] MEDS: CHOLECALCIFEROL 1,000 UNITS TABLET 2000 UNITS PO (09:01)
[2024-07-25 10:57] LABS: Vitamin D 25 Hydroxy 41.1 ng/mL
[2024-07-25 11:36] LABS: Folic Acid 14.8 ng/mL (2.76->20)
[2024-07-25 11:42] LABS: Glucose Point of Care 287 mg/dl (65-105)
--- NOTE | 2024-07-25 12:14 | WPDNEUROPN ---
Progress Note: A&P Assessment and Plan (1) Diplopia: Code(s): H53.2 - Diplopia Status: Acute (2) Type 2 diabetes mellitus: Qualifiers: Diabetes mellitus superintendent marine oil terminal insulin use: with fpc use Diabetes mellitus complication status: without complication Qualified Code(s): E11.9 - Type 2 diabetes mellitus without complications; Z79.4 - intermediate teacher (current) use of insulin Code(s): E11.9 - Type 2 diabetes mellitus without complications Status: Acute Plan Possible ocular myasthenia need be considered in the differential diagnosis in view of the improvement. I have ordered a blood work. Also MR angiography of extracranial vessels indicated possible carotid artery disease since the views were not occlusive and hence I would order a carotid Doppler study as suggested by the radiologist. We should also check his lipid profile. He is currently not on a statin but he does have risk factors and hence a follow-up of the lipid profile and treatment thereof is recommended. If indeed he had ocular motor nerve palsy there does not appear to be any significant evidence for the other than complaining of some diplopia when looking to the left side even though there is no asymmetry of the visual axis at this time. He may have improved or may have underlying ocular myasthenia and require further follow-up. Have been my office phone number for contact Subjective Date/time seen: 07/25/24 12:14 Interval history: The patient was previously seen by Neurology with regard to onset of diplopia and was thought to have 3rd cranial nerve palsy. Patient started to have the symptoms 2 days ago. Headaches have improved. However he has a diplopia is also improved significantly although he still has some occasional double vision looking to the left side and states that if he holds the head angle to the left side it feels that he can avoid seeing double. No difficulty speech or swallowing or no other symptoms reported. Patient has history of diabetes mellitus. Review of Systems Review of Systems: All systems reviewed & are unremarkable except as noted in HPI and below Exam Narrative: Fully conscious alert oriented to self time place and person. No aphasia or dysarthria. Examination head and neck shows no evidence of external injuries. Cranial testing did not show any asymmetry of the extraocular movements the pupils were also equal reactive light. No drooping of eyelids. He does complain of seeing occasionally double been going to the left side although I did not see any restriction of the eye movement. No facial asymmetry. Tongue was midline. Other cranial her normal limits. Motor system normal power and tone in both upper and lower limbs. No involuntary movements seen. Rapid alternating movement both hands were normal. Objective Data Vital Signs Vital Signs: Vital Signs - 24 hr 07/24/24 14:00 07/24/24 16:00 07/24/24 21:59 Temperature 97.1 F L 98.6 F Pulse Rate 88 75 72 Respiratory Rate 20 12 Blood Pressure 133/88 120/74 Pulse Oximetry 93 95 Oxygen Delivery 07/24/24 20:00 07/24/24 20:00 07/25/24 00:00 Temperature Pulse Rate 82 72 63 Respiratory Rate 12 Blood Pressure Pulse Oximetry 95 Oxygen Delivery Autopap 07/24/24 21:00 07/25/24 02:55 07/25/24 04:00 Temperature Pulse Rate 83 54 L Respiratory Rate 24 H 22 H Blood Pressure Pulse Oximetry 97 96 Oxygen Delivery Autopap Autopap 07/25/24 06:00 07/25/24 09:21 07/25/24 08:00 Temperature 97.0 F L Pulse Rate 66 Respiratory Rate 16 Blood Pressure 133/80 Pulse Oximetry 97 94 Oxygen Delivery Room Air Room Air Intake/Output Intake/Output: Intake & Output 07/22/24 07/23/24 07/24/24 07/25/24 23:59 23:59 23:59 23:59 Intake Total 1080 700 Output Total 0 Balance 1080 700 Meds/Results Medications: Active Medications Generic Name Dose Route Start Last Admin Trade Name Freddie
[2024-07-25] MEDS: INSULIN ASPART (*BKC) 100 UNITS/ML SUB-Q (12:46)
[2024-07-25 12:50] LABS: Cholesterol 186 mg/dL (0-200); HDL Direct 23 mg/dL; Triglycerides 265 mg/dL (<150)
[2024-07-25 13:00] LABS: LDL Cholesterol Direct 112 mg/dL
--- NOTE | 2024-07-25 16:00 | PM.DS ---
DS: Admitting Diagnosis Discharge Date 07/25/24 Admitting Diagnosis 3rd nerve palsy, partial type 2 DM RITIKA Headache Statin intolerance HTN Chronic hyponatremia DS: Discharge Diagnosis Discharge Diagnosis (1) 3rd nerve palsy, partial: Qualifiers: Laterality: left Qualified Code(s): H49.02 - Third [oculomotor] nerve palsy, left eye Code(s): H49.00 - Third [oculomotor] nerve palsy, unspecified eye Status: Acute (2) Type 2 diabetes mellitus: Qualifiers: Diabetes mellitus shelter insulin use: with long term care administrator use Diabetes mellitus complication status: without complication Qualified Code(s): E11.9 - Type 2 diabetes mellitus without complications; Z79.4 - terminal operator (current) use of insulin Code(s): E11.9 - Type 2 diabetes mellitus without complications Status: Acute (3) RITIKA (obstructive sleep apnea): Code(s): G47.33 - Obstructive sleep apnea (adult) (pediatric) Status: Acute (4) Headache: Qualifiers: Headache chronicity pattern: acute headache Headache type: unspecified Intractability: not intractable Qualified Code(s): R51.9 - Headache, unspecified Code(s): R51.9 - Headache, unspecified Status: Acute (5) Statin intolerance: Code(s): Z78.9 - Other specified health status Status: Acute (6) HTN (hypertension): Code(s): I10 - Essential (primary) hypertension Status: Acute (7) Chronic hyponatremia: Code(s): E87.1 - Hypo-osmolality and hyponatremia Status: Acute DS: Summary Hospital Course Reason for hospitalization: 3rd nerve palsy, partial type 2 DM RITIKA Headache Statin intolerance HTN Chronic hyponatremia Hospital Course: 64-year-old male patient history of insulin-dependent diabetes and RITIKA on CPAP presents to the emergency department with complaints of headaches with the associated symptom double vision. Patients vitals remained stable throughout inpatient stay. Due to acute vision changes there was initial concern of stroke which was ruled out. Patients head CT showed no acute intracranial process. Neurology consulted in ER recommended admission with MRI to r/o acute stroke. MRI/MRA: No significant abnormality seen. No occlusion, stenosis, or aneurysm. Neck MRA showed likely flow-related artifactual decreased signal at the bilateral carotid bulbs on the [id number] and velocity could sequences and throughout the extracranial common and internal carotid arteries on the postcontrast imaging. No definitive hemodynamic status and stenosis appreciated. Would consider further evaluation of the carotid bulbs with ultrasound. Spoke with Dr. Harman and he states no US is required. Spoke with neurology Dr. Shah prior to discharge and patient is cleared to go from their standpoint. He plans to obtain a carotid US outpatient.Per Dr. Shah patient is to follow up with him in the office as myathenia gravis is also on the differential for his vision changes. I was planning to start atorvastatin 40 mg daily, however spoke with patient and he was trialed on a statin in the past and had a large spike in his LFTs. Echo was obtained and showed LVEF 55-60%. Discussed with patient that this needs to be followed by his PCP. No medication changes were made at this time as he appears euvolemic. During patients admission he was noted to have uncontrolled diabetes with an A1c of 11.5. His lantus dose was increased from 50 units HS to 56 units HS. He is to follow up with his PCP and street department dispatcher about his diabetes. Prior to discharge patient stated that his vision has improved. He denied chest pain, shortness of breath, nausea/vomiting and abdominal pain. Patient discharged home with family in stable condition. He is to continue his medication as prescribed and follow up with his PCP in 1 week and neurology as scheduled. Status at Discharge Functional status at discharge: independent ambulation Time Spent with Patient Time at
== END 2024-07-25 14:10 | disposition home or self-care (01) ==
LOC: ANHED 07-24 00:36 → ANH3MEDSUR 07-24 01:21
PROVIDERS: Nurse Practitioner; Physician Assistant; Psychiatry & Neurology Neurology; Admitting Provider Internal Medicine; Emergency Provider Emergency Medicine; PCP Internal Medicine; Visit Provider Student in an Organized Health Care Education/Training Program
DX: H49.02 Third [oculomotor] nerve palsy, left eye (principal); E13.41 Other specified diabetes mellitus with diabetic mononeuropathy; G70.00 Myasthenia gravis without (acute) exacerbation; G47.33 Obstructive sleep apnea (adult) (pediatric); E87.1 Hypo-osmolality and hyponatremia; F17.290 Nicotine dependence, other tobacco product, uncomplicated; I10 Essential (primary) hypertension; E78.00 Pure hypercholesterolemia, unspecified; K21.9 Gastro-esophageal reflux disease without esophagitis; M47.896 Other spondylosis, lumbar region; H61.23 Impacted cerumen, bilateral; Z78.9 Other specified health status; Z79.4 Long term (current) use of insulin; Z79.899 Other long term (current) drug therapy
CPT/HCPCS: 36415; 70450; 70544; 70549; 70553; 80053; 80061; 82306; 82607; 82746; 82948; 83036; 83735; 84443; 84484; 85025; 85610; 85730; 93005; 96372; 96374; 96375; 99285; A9270; A9577; C8929; G0378; J1650; J1815; Q9957

== ENCOUNTER 2024-08-31 09:36 | Outpatient (CLI) | payer OTHER, SELFPAY ==
[2024-08-31 10:36] LABS: Alanine Aminotransferase 109 U/L (6-50); Albumin Level 3.8 g/dL (3.5-5.1); Alkaline Phosphatase 92 U/L (38-126); Anion Gap 3 mmol/L (4-12); Aspartate Amino Transferase 52 U/L (17-59); Bilirubin,Total 0.7 mg/dL (0.2-1.3); Blood Urea Nitrogen 19 mg/dL (9-20); Calcium 9.2 mg/dL (8.4-10.2); Carbon Dioxide 35 mmol/L (22-30); Chloride 96 mmol/L (98-107); Estimated Glomerular Filt Rate > 60; Glucose 217 mg/dL (65-110); Potassium 4.9 mmol/L (3.4-5.0); Sodium 134 mmol/L (137-145)
[2024-08-31 10:51] LABS: Hemoglobin A1C 10.1 % (<5.7)
== END 2024-08-31 09:37 | disposition home or self-care (01) ==
LOC: ANHLAB 09:39
PROVIDERS: PCP Internal Medicine; Referring Provider Physician Assistant; Visit Provider Internal Medicine
DX: E11.9 Type 2 diabetes mellitus without complications (principal)
CPT/HCPCS: 36415; 80053; 83036

== ENCOUNTER 2024-09-14 12:03 | Emergency (ER) | payer OTHER, SELFPAY ==
[2024-09-14 12:20] VITALS: BP 127/64; PULSE 97; RESP 20; TEMP 37; O2SAT 99
[2024-09-14 12:51] LABS: EDCOVIDSCREEN Negative (Negative); EDINFLUASCREEN Negative (Negative); EDINFLUBSCREEN Negative (Negative)
--- NOTE | 2024-09-14 13:01 | ED.URI ---
HPI - URI/Sore Throat General Chief Complaint: Upper Respiratory Infection Stated Complaint: Sinus Time Seen by Provider: 09/14/24 12:50 Source: patient and RN notes reviewed Mode of arrival: ambulatory Limitations: no limitations History of Present Illness HPI Narrative: Patient presents today with a 4 day history of nasal congestion, postnasal drip, cough. He has been using Advil Sinus, Mucinex, and Delsym without much relief. He did a home COVID test 2 days ago that was negative. Denies fever or shortness of breath. No history of asthma or COPD. Patient does vape. Related Data Home Medications Medication Instructions Recorded Confirmed multivitamin 1 tablet PO DAILY 09/24/19 09/14/24 calcium carbonate 600 mg PO DAILY 07/24/24 09/14/24 cholecalciferol (vitamin D3) 50 50 mcg PO DAILY 07/24/24 09/14/24 mcg (2,000 unit) capsule (Vitamin D3) tizanidine 4 mg tablet 4 - 8 mg PO QHS PRN muscle 07/24/24 09/14/24 spasticity levocetirizine 5 mg tablet (Xyzal) 5 mg PO DAILY 09/14/24 09/14/24 Allergies Allergy/AdvReac Type Severity Reaction Status Date / Time No Known Allergies Allergy Verified 09/14/24 12:17 Review of Systems Review of Systems: CONSTITUTIONAL: Denies body aches, fever, chills, or sweats. EYES: Denies visual changes, redness, or discharge. ENT: Denies rhinorrhea, sore throat, or otalgia.+ congestion, postnasal drip CARDIOVASCULAR: Denies chest pain, palpitations, or edema. RESPIRATORY: Denies dyspnea.+ cough GASTROINTESTINAL: Denies abdominal pain, nausea, vomiting, or diarrhea. GENITOURINARY: Denies dysuria or hematuria. SKIN: Denies rash, itching, or wounds. MUSCULOSKELETAL: Denies back pain, joint pain, or myalgia. NEUROLOGIC: Denies headache, numbness, tingling, or weakness. PSYCH: Denies depression or anxiety. [facility] Past Medical History Medical History Bilateral hearing loss due to cerumen impaction Bronchitis Carpal tunnel syndrome of left wrist Diplopia GERD (gastroesophageal reflux disease) History of colon polyps HTN (hypertension) Hypercholesterolemia Kidney stone Lumbar spondylosis Pneumonia Sleep apnea Type 2 diabetes mellitus Surgical History Surgical History History of carpal tunnel release 1990 Hx of tonsillectomy Infected epidermoid cyst Family History Family History Father Family history of suicide, Onset Age: 62 Patient's father is , Onset Age: 62 Depression Heart disease Sibling Patient's sister is in good health Patient's brother is in good health Family history of lupus erythematosus Patient's sister is Mother Family history of Alzheimer's disease Patient's mother is Breast cancer Diabetes mellitus Sibling Skin cancer (melanoma) Social History Social History Smoking packs per day: 1 Smoking cigarettes per day: 20.0 Years smoked: 40 Smoking pack-years: 40.00 Smoking status: Former smoker Tobacco type: e-cigarettes/vaping Second hand tobacco smoke exposure: No Smoking end date: 11/07/22 Additional smoking assessment comments: former cigarette consumption; current daily vaping Alcohol intake: former Substance use: never Do You Feel Safe in your Home?: Yes Lack of Transportation: No Lack of Food: Never True Current Housing: I Have Housing Concerned About Future Housing: No Difficulty Paying Gas/Electric Bills: No Difficulty Paying for Meds: No Currently Unemployed: No Education: Trade/Vocational Certificate Difficulty w/ Childcare or Family Care: No Living arrangements: with family Occupation/Education: occupation Gender identity (if verbalized by the patient): Male Sexual Orientation (if Verbalized by the Patient): Straight or Heterosexual Spiritual care concerns: No Comments At time of signature, I have reviewed and agree with nursing past medical, surgical, social and family history unless otherwise noted. Please see nursing chart for further information. There is no relevant family history pertinent to the presenting complaint Exam Narrative: GENERAL: Well-appearing, well-nourished, and in no acute distress. HEAD: Normocephalic, atraumatic. EYES: EOMI in left eye. Right eye patched. No redness or drainage. Conjunctivae normal. ENT: Mucous membranes pink and moist. Nares congested. No rhinorrhea. TMs normal bilaterally. Throat normal with postnasal drainage. Uvula midline. NECK: Normal AROM. Supple. No lymphadenopathy. CHEST: No respiratory distress. Clear to auscultation. HEART: Regular rate and rhythm. No murmur appreciated. EXTREMITIES: Normal range of motion. No edema. SKIN: Warm, dry, no rash. Capillary refill normal. Normal skin turgor. NEURO: No focal deficits. Alert and oriented x3. Gait steady. PSYCH: Normal affect. No signs of depression or anxiety. Course Course Level of Care: Express Care Visit Vital Signs Vital signs: Vital Signs Temperature 98.6 F 09/14/24 12:20 Pulse Rate 97 09/14/24 12:20 Respiratory Rate 20 09/14/24 12:20 Blood Pressure 127/64 09/14/24 12:20 Pulse Oximetry 99 09/14/24 12:20 Temperature 98.6 F 09/14/24 12:20 Pulse Rate 97 09/14/24 12:20 Respiratory Rate 20 09/14/24 12:20 Blood Pressure 127/64 09/14/24 12:20 Pulse Oximetry 99 09/14/24 12:20 Reviewed MDM - URI/Sore Throat MDM Narrative Medical decision making narrative: COVID and influenza negative. Symptoms likely viral in etiology. Discussed [id number] medication use and duration of illness. Prescription for Cheratussin Pariskaterineon Perle sent to pharmacy to help patient with his cough as it is keeping him awake at night. Anticipatory guidance given. Differential Diagnosis Differential diagnosis: Likely upper respiratory infection, sinusitis, viral infection, influenza and other (COVID) Lab Data Attestation: I reviewed the patient's lab results. Labs: Lab Results 09/14/24 Range/Units 12:25 POC Influenza A Ag Negative (Negative) POC Influenza B Ag Negative (Negative) POC SARS CoV-2 Ag Negative (Negative) Critical Care Time Critical Care Time Critical Care Time: No Discharge Plan Discharge Clinical Impression: Upper respiratory infection Patient Disposition: Home, Self-Care Condition: Stable Instructions: Upper Respiratory Infection (DC) Additional Instructions: Your influenza and COVID-19 tests are negative today. Your symptoms are likely due to a viral illness, which is not treated with antibiotics. Virus symptoms can last for up to 7-10days. Take ibuprofen or Tylenol for pain or fever. Continue Mucinex during the day to break up any chest congestion. Rest and stay hydrated. Follow up with your PCP in 7 days if symptoms are not improving. Go to the ER immediately if you develop shortness of breath, difficulty swallowing, or any other concerning symptoms. Your blood pressure was elevated above 120/80 today at Urgent Care. This puts you above the threshold for follow up. Please schedule a followup visit with your personal physician as soon as possible, for further evaluation and treatment. Even blood pressure exceeding 120/80 may indicate pre-hypertension. Prescriptions: New benzonatate 200 mg capsule 200 mg PO TID PRN (Reason: cough) Qty: 20 0RF codeine-guaifenesin 10-100 mg/5 mL liquid 5 ml PO Q6H PRN (Reason: cough) Qty: 120 0RF No Action levocetirizine [Xyzal] 5 mg Tablet 5 mg PO DAILY Jardiance 10 mg tablet 10 mg PO DAILY Qty: 90 1RF tizanidine 4 mg tablet 4 - 8 mg PO QHS PRN (Reason: muscle spasticity) cholecalciferol (vitamin D3) [Vitamin D3] 50 mcg (2,000 unit) Capsule 50 mcg PO DAILY calcium carbonate 600 mg calcium (1,500 mg) Tablet 600 mg PO DAILY aspirin [Children's Aspirin] 81 mg Tablet,Chewable 81 mg PO DAILY@0800 Qty: 30 0RF multivitamin Tablet 1 tablet PO DAILY (DME) blood-glucose meter [OneTouch Verio Flex meter[place] [facility] [place] .Route Qty: 1 1RF Rx Instructions: use meter to check BS 4 times daily (DME) OneTouch Verio test strips Strip See Rx Instructions .Route Qty: 400 1RF Rx Instructions: use one strip to check BS 4 times daily (DME) lancets [OneTouch Delica Lancets] 33 gauge misc See Rx Instructions .Route Qty: 400 1RF Rx Instructions: use one lancet to check BS 4 times daily (DME) pen needle, diabetic [BD Tatiana 2nd Gen Pen Needle] 32 gauge x 5/32 needle See Rx Instructions .Route Qty: 100 1RF Rx Instructions: Use with insulin one time daily omega-3 acid ethyl esters [Lovaza] 1 gram capsule 1 cap PO BID Qty: 180 3RF metformin 1,000 mg tablet 1,000 mg PO BID 90 Days Qty: 180 3RF lisinopril-hydrochlorothiazide 10-12.5 mg tablet 1 tablet PO DAILY Qty: 90 2RF tadalafil 20 mg tablet See Rx Instructions .ROUTE .COMPLEX Qty: 18 3RF Dose Instruction: TAKE 1 TABLET BY MOUTH DAILY SEXUAL ACTIVITY AND 30 MINUTES BEFORE SEXUAL ACTIVITY NEEDED. DO NOT USE MORE THAN 1 DOSE PER 24 HOURS Rx Instructions: TAKE 1 TABLET BY MOUTH DAILY SEXUAL ACTIVITY AND 30 MINUTES BEFORE SEXUAL ACTIVITY NEEDED. DO NOT USE MORE THAN 1 DOSE PER 24 HOURS (DME) Dexcom G7 Sensor Device See Rx Instructions .Route Qty: 3 2RF Rx Instructions: As directed insulin glargine [Lantus Solostar U-100 Insulin] 100 unit/mL (3 mL) insulin pen 56 unit SUBCUT HS Qty: 3 3RF Follow-up/Referrals: Oli Alvarez DO [Primary Care Provider] - Time of Disposition: 13:05
== END 2024-09-14 13:10 | disposition home or self-care (01) ==
PROVIDERS: Emergency Provider Nurse Practitioner; PCP Internal Medicine
DX: J06.9 Acute upper respiratory infection, unspecified (principal); Z20.822 Contact with and (suspected) exposure to COVID-19; I10 Essential (primary) hypertension; E11.9 Type 2 diabetes mellitus without complications; Z87.891 Personal history of nicotine dependence
CPT/HCPCS: 87426; 87804; 99213; G0463

== ENCOUNTER 2024-10-19 16:48 | Emergency (ER) | payer OTHER, SELFPAY ==
[2024-10-19 16:55] VITALS: BP 118/63; PULSE 104; RESP 20; TEMP 36.7; O2SAT 99
--- NOTE | 2024-10-19 17:01 | ED.URI ---
HPI - URI/Sore Throat General Chief Complaint: Upper Respiratory Infection Stated Complaint: Sinus/Cough Time Seen by Provider: 10/19/24 17:02 Source: patient, RN notes reviewed and old records reviewed Mode of arrival: ambulatory Limitations: no limitations History of Present Illness HPI Narrative: Patient presents with complaints of URI symptoms for 2 days. 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 He reports slight cough, runny nose, postnasal drainage. He denies any fever, chills, sweats. He reports that cough is hacking, nonproductive. Not terribly bothersome. He has been taking [id number] medications with moderate relief Related Data Home Medications ?Medication ?Instructions ?Recorded ?Confirmed ?Last Taken ?Type multivitamin 1 tablet PO DAILY 09/24/19 10/19/24 12/12/21 History calcium carbonate 600 mg PO DAILY 07/24/24 10/19/24 Unknown History cholecalciferol (vitamin D3) 50 50 mcg PO DAILY 07/24/24 10/19/24 Unknown History mcg (2,000 unit) capsule (Vitamin D3) tizanidine 4 mg tablet 4 - 8 mg PO QHS PRN muscle 07/24/24 10/19/24 Unknown History spasticity levocetirizine 5 mg tablet (Xyzal) 5 mg PO DAILY 09/14/24 10/19/24 Unknown History Allergies Allergy/AdvReac Type Severity Reaction Status Date / Time No Known Allergies Allergy Verified 10/19/24 16:51 Review of Systems Review of Systems: All systems reviewed & are unremarkable except as noted in HPI and below Constitutional: Constitutional: Reports no additional constitutional complaints ENT: Reports system reviewed and no additional complaints, except as documented and Reports nasal discharge Cardiovascular: Cardiovascular: Reports no additional cardiovascular complaints Respiratory: Respiratory: Reports no additional respiratory complaints and Reports cough Gastrointestinal: Gastrointestinal: Reports no additional gastrointestinal complaints PMFSH Past Medical History Medical History Bilateral hearing loss due to cerumen impaction Bronchitis Carpal tunnel syndrome of left wrist Diplopia GERD (gastroesophageal reflux disease) History of colon polyps HTN (hypertension) Hypercholesterolemia Kidney stone Lumbar spondylosis Pneumonia Sleep apnea Type 2 diabetes mellitus Surgical History Surgical History Infected epidermoid cyst History of carpal tunnel release 1990 Hx of tonsillectomy Family History Family History Father Family history of suicide, Onset Age: 62 Patient's father is , Onset Age: 62 Depression Heart disease Sibling Patient's sister is in good health Patient's brother is in good health Family history of lupus erythematosus Patient's sister is Mother Family history of Alzheimer's disease Patient's mother is Breast cancer Diabetes mellitus Sibling Skin cancer (melanoma) Social History Social History Smoking packs per day: 1 Smoking cigarettes per day: 20.0 Years smoked: 40 Smoking pack-years: 40.00 Smoking status: Former smoker Tobacco type: e-cigarettes/vaping Second hand tobacco smoke exposure: No Smoking end date: 11/07/22 Additional smoking assessment comments: former cigarette consumption; current daily vaping Alcohol intake: former Substance use: never Do You Feel Safe in your Home?: Yes Lack of Transportation: No Lack of Food: Never True Current Housing: I Have Housing Concerned About Future Housing: No Difficulty Paying Gas/Electric Bills: No Difficulty Paying for Meds: No Currently Unemployed: No Education: Trade/Vocational Certificate Difficulty w/ Childcare or Family Care: No Living arrangements: with family Occupation/Education: occupation Gender identity (if verbalized by the patient): Male Sexual Orientation (if Verbalized by the Patient): Straight or Heterosexual Spiritual care concerns: No Comments At the time of my signature, I reviewed and agree with the nursing past medical, surgical, social, and family history. There is no relevant family history pertinent to the patient complaint. Exam Const: General: cooperative, no acute distress, alert and awake Orientation/consciousness: oriented to person, oriented to place and oriented to time HENMT: Head: normal to inspection Resp: Effort & Inspection: normal respiratory effort and able to speak in complete sentences Auscultation: clear to auscultation bilaterally, no crackles, no rales, no rhonchi and no wheezes Cardio: Palpation: normal PMI Rate: regular rate Rhythm: regular rhythm Heart sounds: S1 normal heart sound present and S2 normal heart sound present Neuro: General: oriented to person, oriented to place and oriented to time Cranial nerves: Yes CN's II-XII intact bilaterally Psych: Appearance: grossly normal Thought process: Normal thought process present Insight: Good insight present (Psych) Judgement: Good judgement present (Psych) Course Course Level of Care: Express Care Visit Vital Signs Vital signs: Reviewed MDM - URI/Sore Throat MDM Narrative Medical decision making narrative: Negative COVID, negative strep. Reassuring physical exam. Symptoms likely viral in origin. Treat symptomatically. Patient nontoxic appearing, stable for discharge home. Discharge instructions reviewed with patient, as well as provided in writing per nursing staff. The instructions also include specific and strict return/GO TO THE ER as well as f/u information. All questions have been answered, and the patient deny any further questions with discharge and discharge plan. Some parts of this dictation were generated by voice recognition software and may contain typographical and/or grammatical inaccuracies. Differential Diagnosis Differential diagnosis: Likely upper respiratory infection, sinusitis, viral infection, bronchitis and influenza Medical Records Attestation: I reviewed the patient's medical records. Lab Data Attestation: I reviewed the patient's lab results. Discharge Plan Discharge Clinical Impression: Viral infection Patient Disposition: Home, Self-Care Condition: Stable Instructions: Antibiotic Form, Cold Symptoms (ED) Additional Instructions: Take medications as prescribed. Follow with primary care provider. Emergency department for any new or worse symptoms Patient Language: Eritrean Prescriptions: New benzonatate 200 mg capsule 200 mg PO TID PRN (Reason: cough) Qty: 30 0RF albuterol sulfate [Ventolin HFA] 90 mcg/actuation HFA aerosol inhaler 2 puff inhalation QID PRN (Reason: shortness of breath or wheezing) Qty: 8.5 0RF No Action levocetirizine [Xyzal] 5 mg Tablet 5 mg PO DAILY benzonatate 200 mg capsule 200 mg PO TID PRN (Reason: cough) Qty: 20 0RF Jardiance 10 mg tablet 10 mg PO DAILY Qty: 90 1RF tizanidine 4 mg tablet 4 - 8 mg PO QHS PRN (Reason: muscle spasticity) cholecalciferol (vitamin D3) [Vitamin D3] 50 mcg (2,000 unit) Capsule 50 mcg PO DAILY calcium carbonate 600 mg calcium (1,500 mg) Tablet 600 mg PO DAILY aspirin [Children's Aspirin] 81 mg Tablet,Chewable 81 mg PO DAILY@0800 Qty: 30 0RF multivitamin Tablet 1 tablet PO DAILY (DME) blood-glucose meter [OneTouch Verio Flex meter] [facility] See Rx Instructions .Route Qty: 1 1RF Rx Instructions: use meter to check BS 4 times daily (DME) OneTouch Verio test strips Strip See Rx Instructions .Route Qty: 400 1RF Rx Instructions: use one strip to check BS 4 times daily (DME) lancets [SMASHsolaruch Delica Lancets] 33 gauge misc See Rx Instructions .Route Qty: 400 1RF Rx Instructions: use one lancet to check BS 4 times daily (DME) pen needle, diabetic [BD Tatiana 2nd Gen Pen Needle] 32 gauge x 5/32 needle See Rx Instructions .Route Qty: 100 1RF Rx Instructions: Use with insulin one time daily omega-3 acid ethyl esters [Lovaza] 1 gram capsule 1 cap PO BID Qty: 180 3RF metformin 1,000 mg tablet 1,000 mg PO BID 90 Days Qty: 180 3RF lisinopril-hydrochlorothiazide 10-12.5 mg tablet 1 tablet PO DAILY Qty: 90 2RF tadalafil 20 mg tablet See Rx Instructions .ROUTE .COMPLEX Qty: 18 3RF Dose Instruction: TAKE 1 TABLET BY MOUTH DAILY SEXUAL ACTIVITY AND 30 MINUTES BEFORE SEXUAL ACTIVITY NEEDED. DO NOT USE MORE THAN 1 DOSE PER 24 HOURS Rx Instructions: TAKE 1 TABLET BY MOUTH DAILY SEXUAL ACTIVITY AND 30 MINUTES BEFORE SEXUAL ACTIVITY NEEDED. DO NOT USE MORE THAN 1 DOSE PER 24 HOURS (DME) Dexcom G7 Sensor Device See Rx Instructions .Route Qty: 3 2RF Rx Instructions: As directed insulin glargine [Lantus Solostar U-100 Insulin] 100 unit/mL (3 mL) insulin pen 56 unit SUBCUT HS Qty: 3 6RF Follow-up/Referrals: Oli Alvarez DO [Primary Care Provider] - 2 Weeks Time of Disposition: 17:32
[2024-10-19 17:18] LABS: EDCOVIDSCREEN Negative (Negative); EDINFLUASCREEN Negative (Negative); EDINFLUBSCREEN Negative (Negative)
== END 2024-10-19 17:35 | disposition home or self-care (01) ==
PROVIDERS: Emergency Provider Nurse Practitioner Family; PCP Internal Medicine
DX: B34.9 Viral infection, unspecified (principal); Z20.822 Contact with and (suspected) exposure to COVID-19; F17.290 Nicotine dependence, other tobacco product, uncomplicated; I10 Essential (primary) hypertension; E78.00 Pure hypercholesterolemia, unspecified; E11.9 Type 2 diabetes mellitus without complications
CPT/HCPCS: 87426; 87804; 99213; G0463

== ENCOUNTER 2024-11-06 16:01 | Emergency (ER) | payer OTHER, SELFPAY ==
--- NOTE | ~2024-11-06 | XR_ITS ---
XR knee LT min 4V 11/06/2024 17:11 INDICATION: Left knee pain after twisting injury PROCEDURE: 4 views left knee COMPARISON: No prior studies for comparison. FINDINGS: Fracture, dislocation or subluxation is not identified. No significant joint effusion. The soft tissues appear within normal limits. No foreign bodies are identified. IMPRESSION: 1: NO ACUTE BONE OR JOINT ABNORMALITY IDENTIFIED. Reviewed, dictated and finalized at location A. R UNION BUSINESS REPRESENTATIVE
--- NOTE | ~2024-11-06 | US_ITS ---
EXAMINATION:US venous doppler LE LT INDICATION:Left knee pain TECHNIQUE: Multiple grayscale, color flow and Doppler images of the left lower extremity deep venous systems were obtained and reviewed. COMPARISON:No prior studies for comparison. FINDINGS: The common femoral, superficial femoral and popliteal veins demonstrate normal respiratory variation, augmentation and compressibility. Color flow is also seen within the posterior tibial, pe roneal, greater saphenous and profunda veins. IMPRESSION: 1: No lower extremity deep venous thrombosis. Reviewed, dictated and finalized at location A. S3B MULTI SENSOR OPERATOR
[2024-11-06 16:12] VITALS: BP 136/77; PULSE 62; RESP 16; TEMP 36.8; O2SAT 95
--- NOTE | 2024-11-06 16:22 | ED_ITS ---
HPI - Extremity Injury (Lower) General Chief Complaint: Extremity Injury, Lower Stated Complaint: fall-left knee pain Time Seen by Provider: 11/06/24 17:00 Focused HPI: 64-year-old male presents emergency department for left knee pain over the past few days. Patient states he has had knee pain for several weeks, however he injured his knee while shoveling snow last week. States since then he has had increasingly more pain in his left knee. He went to [facility] ER few days ago and had an x-ray that was reportedly unremarkable. States his pain is persistently worsened so he came to our ER today. He states the pain is worse when he goes from sitting to standing position. He points to his lateral joint line, inferior to his patella and posterior knee when describing the pain. He denies clicking or popping sensation. He does have lower extremity edema which he states is unchanged from baseline. He reports that [facility] did not evaluate for a DVT which he is concerned for. He denies recent surgeries or hospitalizations, long travel, history of VTE. GENERAL: Well-appearing, well-nourished, and in no acute distress. HEAD: Normocephalic, atraumatic. CHEST: Clear to auscultation. ?No respiratory distress. EXT: 1+ pitting edema to bilateral lower extremities. No significant tenderness to the left knee with no overlying erythema or edema. Full active passive range of motion of knee. DP pulse 2 +. Sensation intact. HEART: Regular rate and rhythm.? NEURO: ?Alert and oriented x3. Patient screened in triage and initial orders placed.? ?Additional care and disposition to be based upon?diagnostic testing and treatment. History of Present Illness HPI Narrative: Agree with the above note Related Data Home Medications ?Medication ?Instructions ?Recorded ?Confirmed ?Last Taken ?Type multivitamin 1 tablet PO DAILY 09/24/19 10/19/24 12/12/21 History calcium carbonate 600 mg PO DAILY 07/24/24 10/19/24 Unknown History cholecalciferol (vitamin D3) 50 50 mcg PO DAILY 07/24/24 10/19/24 Unknown History mcg (2,000 unit) capsule (Vitamin D3) tizanidine 4 mg tablet 4 - 8 mg PO QHS PRN muscle 07/24/24 10/19/24 Unknown History spasticity levocetirizine 5 mg tablet (Xyzal) 5 mg PO DAILY 09/14/24 10/19/24 Unknown History Allergies Allergy/AdvReac Type Severity Reaction Status Date / Time No Known Allergies Allergy Verified 11/06/24 16:01 Review of Systems Review of Systems: All systems reviewed & are unremarkable except as noted in HPI and below PMFSH Past Medical History Medical History Bilateral hearing loss due to cerumen impaction Bronchitis Carpal tunnel syndrome of left wrist Diplopia GERD (gastroesophageal reflux disease) History of colon polyps HTN (hypertension) Hypercholesterolemia Kidney stone Lumbar spondylosis Pneumonia Sleep apnea Type 2 diabetes mellitus Surgical History Surgical History Infected epidermoid cyst History of carpal tunnel release 1990 Hx of tonsillectomy Family History Family History Father Family history of suicide, Onset Age: 62 Patient's father is , Onset Age: 62 Depression Heart disease Sibling Patient's sister is in good health Patient's brother is in good health Family history of lupus erythematosus Patient's sister is Mother Family history of Alzheimer's disease Patient's mother is Breast cancer Diabetes mellitus Sibling Skin cancer (melanoma) Social History Social History Smoking packs per day: 1 Smoking cigarettes per day: 20.0 Years smoked: 40 Smoking pack-years: 40.00 Smoking status: Former smoker Tobacco type: e-cigarettes/vaping Second hand tobacco smoke exposure: No Smoking end date: 11/07/22 Additional smoking assessment comments: former cigarette consumption; current daily vaping Alcohol intake: former Substance use: never Do You Feel Safe in your Home?: Yes Lack of Transportation: No Lack of Food: Never True Current Housing: I Have Housing Concerned About Future Housing: No Difficulty Paying Gas/Electric Bills: No Difficulty Paying for Meds: No Currently Unemployed: No Education: Trade/Vocational Certificate Difficulty w/ Childcare or Family Care: No Living arrangements: with family Occupation/Education: occupation Gender identity (if verbalized by the patient): Male Sexual Orientation (if Verbalized by the Patient): Straight or Heterosexual Spiritual care concerns: No Exam Narrative: GENERAL: Well-appearing, well-nourished, and in no acute distress. HEAD: Normocephalic, atraumatic. EYES:EOMI. ENT: Nares clear, no rhinorrhea or epistaxis. Mucous membranes moist. NECK: Supple. CHEST: Clear to auscultation. No respiratory distress. HEART: Regular rate and rhythm. No murmur heard. Normal peripheral pulses. EXTREMITIES: LLE: +pitting edema to bilateral lower extremities which is unchanged per patient. No significant tenderness of the left knee with no overlying erythema or edema. Full active and passive range of motion of knee. DP pulse 2 +. Sensation intact. Negative Ye sign. SKIN: Warm, dry, no rash. NEURO: No focal deficits. Alert and oriented x3 Course Vital Signs Vital signs: Vital Signs Oxygen Delivery Room Air 11/06/24 16:10 Temperature 98.3 F 11/06/24 16:12 Pulse Rate 62 11/06/24 16:12 Respiratory Rate 16 11/06/24 16:12 Blood Pressure 136/77 11/06/24 16:12 Pulse Oximetry 95 11/06/24 16:12 Oxygen Delivery Room Air 11/06/24 16:10 MDM - Extremity Injury (Lower) MDM Narrative Medical decision making narrative: 64-year-old male presents to the ED for left knee pain for the past few days. See HPI for further history. Triage vitals are stable. Exam is significant for the above. He is neurovascularly intact. X-ray of the knee shows no acute osseous abnormality. Given this is patient's 2nd visit to the ED in his concurrent lower extremity edema (however he does state this chronic) lower extremity duplex ordered which shows no DVT. Patient was updated on workup. Offered knee splint/immobilizer however patient has a recent home he is requesting to use. Advised follow-up with ortho discussed supportive measures. Ibuprofen sent to pharmacy. Strict ED return precautions discussed. He is agreeable with plan verbalized understanding. Discharged in stable condition. Discharge Plan Discharge Clinical Impression: Strain of left knee Patient Disposition: Home, Self-Care Condition: Stable Instructions: Antibiotic Form, Knee Sprain (DC), Knee Pain (ED) Additional Instructions: You were evaluated in the emergency department for knee pain. X-ray shows no acute fracture or dislocation. The ultrasound shows no DVT. Take tylenol and ibuprofen as needed for pain. Follow-up with the orthopedist. Rest, ice, elevate and compression knee. Return to the emergency department if he develops significantly worsening pain, numbness or white lower extremity, or other concerning symptoms Patient Language: Grenadian Prescriptions: New ibuprofen 800 mg tablet 800 mg PO TID PRN (Reason: pain) Qty: 20 0RF No Action levocetirizine [Xyzal] 5 mg Tablet 5 mg PO DAILY benzonatate 200 mg capsule 200 mg PO TID PRN (Reason: cough) Qty: 20 0RF benzonatate 200 mg capsule 200 mg PO TID PRN (Reason: cough) Qty: 30 0RF albuterol sulfate [Ventolin HFA] 90 mcg/actuation HFA aerosol inhaler 2 puff inhalation QID PRN (Reason: shortness of breath or wheezing) Qty: 8.5 0RF Jardiance 10 mg tablet 10 mg PO DAILY Qty: 90 1RF tizanidine 4 mg tablet 4 - 8 mg PO QHS PRN (Reason: muscle spasticity) cholecalciferol (vitamin D3) [Vitamin D3] 50 mcg (2,000 unit) Capsule 50 mcg PO DAILY calcium carbonate 600 mg calcium (1,500 mg) Tablet 600 mg PO DAILY aspirin [Children's Aspirin] 81 mg Tablet,Chewable 81 mg PO DAILY@0800 Qty: 30 0RF multivitamin Tablet 1 tablet PO DAILY (DME) blood-glucose meter [GreenphireTouch Verio Flex meter] [facility] See Rx Instructions .Route Qty: 1 1RF Rx Instructions: use meter to check BS 4 times daily (DME) OneTouch Verio test strips Strip See Rx Instructions .Route Qty: 400 1RF Rx Instructions: use one strip to check BS 4 times daily (DME) lancets [OneTouch Delica Lancets] 33 gauge [facility] [place] See Rx Instructions .Route Qty: 400 1RF Rx Instructions: use one lancet to check BS 4 times daily omega-3 acid ethyl esters [Lovaza] 1 gram capsule 1 cap PO BID Qty: 180 3RF metformin 1,000 mg tablet 1,000 mg PO BID 90 Days Qty: 180 3RF lisinopril-hydrochlorothiazide 10-12.5 mg tablet 1 tablet PO DAILY Qty: 90 2RF tadalafil 20 mg tablet See Rx Instructions .ROUTE .COMPLEX Qty: 18 3RF Dose Instruction: TAKE 1 TABLET BY MOUTH DAILY SEXUAL ACTIVITY AND 30 MINUTES BEFORE SEXUAL ACTIVITY NEEDED. DO NOT USE MORE THAN 1 DOSE PER 24 HOURS Rx Instructions: TAKE 1 TABLET BY MOUTH DAILY SEXUAL ACTIVITY AND 30 MINUTES BEFORE SEXUAL ACTIVITY NEEDED. DO NOT USE MORE THAN 1 DOSE PER 24 HOURS (DME) Dexcom G7 Sensor Device See Rx Instructions .Route Qty: 3 2RF Rx Instructions: As directed (DME) pen needle, diabetic [BD Tatiana 2nd Gen Pen Needle] 32 gauge x 5/32 needle See Rx Instructions .Route Qty: 100 2RF Rx Instructions: Use with insulin one time daily insulin glargine [Lantus Solostar U-100 Insulin] 100 unit/mL (3 mL) insulin pen 56 unit SUBCUT HS Qty: 18 6RF Follow-up/Referrals: Oli Alvarez DO [Primary Care Provider] - Andrade Spear MD [Physician] -
[2024-11-06 18:10] VITALS: BP 140/70; PULSE 67; RESP 18; TEMP 37.1; O2SAT 99
== END 2024-11-06 18:11 | disposition home or self-care (01) ==
PROVIDERS: Emergency Provider Physician Assistant; PCP Internal Medicine
DX: S86.912A Strain of unspecified muscle(s) and tendon(s) at lower leg level, left leg, initial encounter (principal); I10 Essential (primary) hypertension; E78.00 Pure hypercholesterolemia, unspecified; E11.9 Type 2 diabetes mellitus without complications; K21.9 Gastro-esophageal reflux disease without esophagitis; G47.30 Sleep apnea, unspecified; F17.290 Nicotine dependence, other tobacco product, uncomplicated; Z86.0100 Personal history of colon polyps, unspecified; Z87.01 Personal history of pneumonia (recurrent); Z87.442 Personal history of urinary calculi; X50.0XXA Overexertion from strenuous movement or load, initial encounter; Y93.H1 Activity, digging, shoveling and raking; Z79.82 Long term (current) use of aspirin; Z79.84 Long term (current) use of oral hypoglycemic drugs; Z79.4 Long term (current) use of insulin; Z79.899 Other long term (current) drug therapy
CPT/HCPCS: 73564; 93971; 99284

== ENCOUNTER 2024-11-30 09:37 | Outpatient (CLI) | payer OTHER, SELFPAY ==
--- OUTSIDE RECORDS SUMMARY | 2024-11-30 09:40 | XMS_ITS | Continuity of Care Document ---
Author Organization [facility] Address [address] [place] [address] Phone Care Team Providers Care Business Unit Controller Name Role Phone Adams OD, Pedro Unavailable Unavailable Procedures Procedure Date Remove Foreign Body From Eye Advance Directives Directive Yes / No Effective Date File Name No Information Encounters Encounter Description Practice Location Reason(s) For Visit Diagnoses Date Provider Providers Copied on Encounter [facility], [address] [place], [place], [id number], [place] tel:[phone] [facility] No Information [phone] Adams OD Pedro. [address] , [address], [place], [address], [place]. tel:[phone] Family History Family Member Type Diagnosis Age At Onset No Information Payers Payer name Insurance type Covered republican ID Authoriza tion(s) No Information Social History [...]
--- OUTSIDE RECORDS SUMMARY | 2024-11-30 09:40 | XMS_ITS | Continuity of Care Document ---
Author Organization [facility] Address [address] [facility] [address] [place] [address] Phone Care Team Providers Care Clinical Biostatistician Name Role Phone Brandin Bull Unavailable Unavailable Procedures Procedure Date Therapeutic Activities Neuromuscular Re-Ed Manual Therapy Therapeutic Exercise Therapeutic Activities Neuromuscular Re-Ed Therapeutic Exercise Manual Therapy Therapeutic Exercise Manual Therapy Therapeutic Activities Neuromuscular Re-Ed PT Evaluation Moderate Complexity Therapeutic Activities Therapeutic Exercise Manual Therapy Neuromuscular Re-Ed PT Evaluation Moderate Complexity Therapeutic Exercise Neuromuscular Re-Ed Advance Directives Directive Yes / No Effective Date File Name No Information Encounters Encounter Description Practice Location Reason(s) For Visit Diagnoses Date Provider Providers Copied on Encounter [facility] [address], [place], [place], [id number], [place] tel:[phone] [place] No Information Zaida Ghotra. [address] [facility], [address], [place], [facility], . tel:[phone] [facility] [address], [place], [place], [id number], tel:[phone] [place] No Information 0 - 2 Muehl Brandin. [address] [facility], [address], [place], [facility], . tel:[phone] Referring Provider: Agustin Aguirre [address] [place] [address], [facility]. tel:[phone], [id number], [place] tel:[phone] [place] No Information February-0 2-202 2 Muehl Brandin. [address] [facility], [address], [place], [facility], [place]. tel:[phone] Referring Provider: Agustin Aguirre [address] [place] [address], [facility]. tel:[phone], [id number], [place] tel:[phone] [place] No Information Jan-2 - 2 Muehl Brandin. [address] [place] [address], [address], [place], [facility], [place]. tel:[phone] Referring Provider: Thanh Fuentes [facility] [address], [address]. tel:[phone], [id number], [place] tel:[phone] [place] No Information Jan-2 6-202 2 Muehl Brandin. [address] [place] [address], [address], [place], [facility], [place]. tel:[phone] Referring Provider: Brady Fuentes [facility] [address], [address]. tel:[phone] [address], [place], [place], [id number], [place] tel:[phone] [place] Lumbago with sciatica, right sideOther chronic painPain in right hipOth symptoms and signs involving the musculoskeletal system Harsha-0 5-201 7 Muehl Brandin. [address] [facility], [address], [place], [address], [place]. tel:[phone] Referring Provider: Franky Parsons, [address] [address], [place], [address]. tel:[phone] Family History Family Member Type Diagnosis Age At Onset No Information Payers Payer name Insurance type Covered libertarian ID Authorsusan pyle(s) [facility] [id number] Social History Type Description Quantity Date Captured Comments Sex Male Smoking Status No Information Chief Complaint And Reason For Visit No Information Reason For Referral Reason For Referral No Information History Of Present Illness Encounter Date Complaint History Of Prese nt Illness No Information Functional Status Date Functional Assessmen t No Information Instructions Date Instruction Additional Infor trudy Giving encouragement to exercise Related to Overweight Giving encouragement to exercise Related to Overweight Assessments Type Assessment Date No Information Patient Care Teams Name Effective Dates (start - stop) Status Members No Information
--- OUTSIDE RECORDS SUMMARY | 2024-11-30 09:40 | XMS_ITS | Clinical Summary ---
Author Organization [facility] Address [address] [facility] [place] [address] Care Team Providers Care Casting Machine Service Operator Name Role Phone Oli Alvarez DO Primary Care Provider [phone] Allergies No known active allergies Medications multivit with calcium,iron,m in (MULTIVITAMIN- MH-[id number]-[id number] LS ORAL) Take by mouth 7 Active SEMGLEE-yfgn 100 unit/mL (3 mL) pen for injection ADMINISTER 50 UNITS UNDER THE SKIN DAILY 3 Active lisinopril-hyd roCHLOROthiazi de (ZESTORETIC) 10-12.5 mg per tablet Take by mouth 7 Active metFORMIN (GLUCOPHAGE) 1,000 mg tablet Take 1 tablet (1,000 mg total) by mouth 2 (two) times a day Active omega-3 fatty acids (LOVAZA) 1 gram capsule Take 1 capsule (1 g total) by mouth 2 (two) times a day 3 Active BD Tatiana 2nd Gen Pen Needle 32 gauge x 5/32 needle 3 Active Cialis 20 mg tablet 7 Active Mounjaro 5 mg/0.5 mL pen injector INJECT 5MG UNDER THE SKIN EVERY WEEK. 3 Active Mounjaro 7.5 mg/0.5 mL pen injector ADMINISTER 7.5 MG UNDER THE SKIN WEEKLY 3 Active tiZANidine (ZANAFLEX) 4 mg tablet Take 1 tablet (4 mg total) by mouth nightly as needed 3 Active traMADoL (ULTRAM) 50 mg tablet 3 Active cetirizine (ZyrTEC) 10 mg tablet Take 1 tablet (10 mg total) by mouth daily Active magnesium oxide (MAG-OX) 250 mg (150.8 mg elemental) tabletIndicati ons:hypomagnes emia 1 tablet (250 mg total) daily Active cholecalcifero l (VITAMIN D-3) 2000 unit tablet Active calcium carbonate (CALCIUM 500 ORAL) Take by mouth Active methylPREDNISo lone (Medrol, Pepe,) 4 mg Dosepack follow package directions 1 packet 5 Active celecoxib (CeleBREX) 200 mg capsuleIndicat ions:It band syndrome, left,Patellofe moral disorder of left knee Take 1 capsule (200 mg total) by mouth daily for 14 days 14 capsule 5 Active ibuprofen (ADVIL,MOTRIN) 800 mg tablet Take 1 tablet (800 mg total) by mouth 3 (three) times a day 21 tablet 5 11/13/19 25 Discontinu ed(Therapy completed) Active Problems Problem Noted Date Diagnosed Date 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 Overview (01/25/2017): MIXED HYPERLIPIDEMIA Gastroesophageal reflux disease 03/08/2014 Overview (01/25/2017): ESOPHAGEAL REFLUX Tobacco dependence syndrome 03/08/2014 Overview (01/25/2017): TOBACCO USE DISORDER Benign hypertension 03/08/2014 Overview (01/25/2017): BENIGN HYPERTENSION Encounters Date Type Department Care Team Description 11/13/2024 10:00 AM PULVERIZER MILL OPERATOR Office Visit [facility] Sports Medicine and Primary Care at [address] [place] [address] David Merchant, DO It band syndrome, left (Primary Dx); Patellofemoral disorder of left knee 10/31/2024 1:00 PM PULVERIZER MILL OPERATOR - 10/31/2024 2:04 PM PULVERIZER MILL OPERATOR Emergency [address] [address] Acute pain of left knee (Primary Dx) Discharge Disposition: Discharge to home or self care from Last 3 Months Surgical History Surgery Date Site/Laterality Comments OTHER SURGICAL HISTORY 1966 Tonsillitis: tonsillectomy CARPAL TUNNEL RELEASE 1989 Carpal tunnel release FL UPPER GI AIR CONTRAST W KUB 10/27/2023 Left Medical History Medical History Date Comments Hx Other Medical 2006 achilles tendon itis Hx Other Medical e.d. Tonsillitis Tonsillitis Diabetes mellitus (HCC) 2007 Hypertension 2010 Sleep apnea 2009 Kidney stone 1981 Family History Medical History Relation Name Comments Depression Brother 1 Depression; Heart disease Brother 2 Heart disease; Dementia Father Elpidio Dementia; Depression Father Elpidio Depression; Mental illness Father Elpidio Chronic menta l illness - (Added by TW Conv) Cancer Mother Tasneem Family history of malignant neoplasm - (Added by TW Conv) Dementia Mother Tasneem dementia; Depression Mother Tasneem Depression; Diabetes Mother Tasneem Diabetes mellit us; Hypertension Mother Tasneem Hypertension; Obesity Mother Tasneem Depression Other 1 Family history of Depression; Diabetes Other 2 Family history of Diabetes mellitus; Hypertension Other 3 Family history of Hypertension; Relation Name Status Comments Brother 1 Brother 2 Father Elpidio Mother Tasneem Other 1 Other 2 Other 3 Social History Tobacco Use Types Packs/Day Years Used Date Smoking Tobacco: Former Cigarettes 1.3 15 2 007 - 2021 Smokeless Tobacco: Never Tobacco Cessation:Counseling Given: Not Answered Alcohol Use Standard Drinks/Week Comments Yes 0 (1 standard drink = 0.6 oz pur e alcohol) AUDIT-C Answer Date Recorded Q1: How often do you have a drink containing alcohol? Never 11/13/2024 Q2: How many drinks containi ng alcohol do you have on a typical day when you are drinking? Patient does not drink Q3: How often do you have si x or more drinks on one occasion? Never 11/13/2024 Personal Safety Answer Date Recorded Have you ever been in or are you currently in a harmful physical or emotional relationship or is someone making you feel afraid or unsafe? Denies 10/31/2024 Sex and Gender Information Value Date Recorded Sex Assigned at Not on file Legal Sex Male 11:54 PM PULVERIZER MILL OPERATOR Gender Identity Male 10/09/2023 10:13 AM PULVERIZER MILL OPERATOR Sexual Orientation Straight 10/09/2023 10 :13 AM PULVERIZER MILL OPERATOR Obstetrics History Last Filed Vital Signs Vital Sign Reading Time Taken Comments Blood Pressure 125/78 11/13/2024 10:00 AM PULVERIZER MILL OPERATOR Pulse 80 11/13/2024 10:00 AM PULVERIZER MILL OPERATOR Temperature 36.4 C (97.5 F) 10/31/2024 12:34 PM PULVERIZER MILL OPERATOR Respiratory Rate 18 11/13/2024 10:0 0 AM PULVERIZER MILL OPERATOR Oxygen Saturation 98% 10/31/2024 12: 34 PM PULVERIZER MILL OPERATOR Inhaled Oxygen Concentration - - Weight 138.2 kg (304 lb 9.6 oz) 025 10:00 AM PULVERIZER MILL OPERATOR Height 182.9 cm (6') 11/13/2024 10:00 AM PULVERIZER MILL OPERATOR Body Mass Index 41.31 11/13/2024 10:00 AM PULVERIZER MILL OPERATOR Plan of Treatment Health Maintenance Due Date Last Done Comments Colon Cancer Screening-Colonoscopy 1961 Depression Screening 1961 Hepatitis C Screening 1961 Prostate Cancer Screening-PSA 1961 DTaP/Tdap/Td Vaccine (1 - Tdap) 1972 Hepatitis B Screening 1979 Regular Well Visit/Exam 18-64 1979 Zoster Vaccine (1 of 2) 2011 Covid-19 Vaccine (3 - 2023-2 5 season) 2024 09/04/2021, 12/29/2020 Influenza Vaccine (#1) 2024 11/02/2013 Pneumococcal vaccine <65 Aged Out No longer eligible based on patient's age to complete this topic Procedures Procedure Name Priority Date/Time Associated Diagnosis Comments XR KNEE LEFT 1 OR 2 VIEWS ED 10/31/2024 1:07 PM PULVERIZER MILL OPERATOR from Last 3 Months Results * XR Knee Left 1 or 2 Views (10/31/2024 1:07 PM PULVERIZER MILL OPERATOR) Anatomical Region Laterality Modality Lower Extremities, Knee Left Computed Radiography 10/31/2024 1:28 PM PULVERIZER MILL OPERATOR Narrative 10/31/2024 1:29 PM PULVERIZER MILL OPERATOR EXAM DESCRIPTION: XR KNEE LEFT 1 OR 2 VIEWS REASON FOR STUDY: pain Pt. To ED with c/o left knee pain. Reports pain has been there for a couple weeks. States pain is worse with increase movement. Reports aching/ stabbing pain. Denies injury or fall on area. AAOX4. Ambulatory to Triage. TECHNIQUE: 2 radiographic view(s) of the left knee . COMPARISON: None FINDINGS: BONES/JOINTS: No acute fracture or dislocation. No destructive osseous lesion. The joint spaces appear relatively well preserved. Trace joint effusion suggested. SOFT TISSUES: There is minimal anterior soft tissue swelling. IMPRESSION: 1. No acute fracture or dislocation. Trace joint effusion suggested. 2. Minimal anterior soft tissue swelling THIS IS AN ELECTRONICALLY VERIFIED FINAL REPORT 10/31/2024 1:29 PM - Electronically signed by Nasra Cadena M.D. TW T: Report ID: [id number] Reading Location: [id number] Procedure Note Nasra Cadena MD - 10/31/2024 EXAM DESCRIPTION: XR KNEE LEFT 1 OR 2 VIEWS REASON FOR STUDY: pain Pt. To ED with c/o left knee pain. Reports pain has been there for acouple weeks. States pain is worse with increase movement. Reports aching/stabbing pain. Denies injury or fall on area. AAOX4. Ambulatory to Triage. TECHNIQUE: 2 radiographic view(s) of the left knee . COMPARISON: None FINDINGS: BONES/JOINTS: No acute fracture or dislocation. No destructive osseous lesion. The joint spaces appear relatively well preserved. Trace joint effusion suggested. SOFT TISSUES: There is minimal anterior soft tissue swelling. IMPRESSION: 1. No acute fracture or dislocation. Trace joint effusion suggested. 2. Minimal anterior soft tissue swelling THIS IS AN ELECTRONICALLY VERIFIED FINAL REPORT 10/31/2024 1:29 PM - Electronically signed by Nasra Cadena M.D. TW T: Report ID: [id number] Reading Location: [id number] [facility] Rehab Jorge A FAUSTIN IMG XR PROCEDURES Final Result from Last 3 Months Insurance [facility] AETNA SIGNATURE [place] [id number] Care Teams Casting Machine Service Operator Relationship Specialty Start Date End Date Oli Alvarez DO [address] [place] [address] PCP - General Internal Medicine 10/31/24
--- OUTSIDE RECORDS SUMMARY | 2024-11-30 09:40 | XMS_ITS | Continuity of Care Document ---
Author Organization [facility] Address [address] [place] [id number] Insurance Providers Payer Plan Claims Address Claims Phone Policy Number Group Number Relation Employer Guarantor Name Guarantor Guarantor Address Guarantor Phone [employer]omed[employer] [facility] [address] [id number] Self JOEL RORY 1960 [address] [place] [id number] Problems Unknown Problems Results No Results Allergies, adverse reactions, alerts No known allergies and adverse reactions Medications No administered medications reported Vital Signs Date Vital Result Comment 08/05/2023 Body Height [id number] m Body Weight 138.41255338971 kg Body Mass Index 41.37 kg/m2 Social History No smoking Hx information available
--- OUTSIDE RECORDS SUMMARY | 2024-11-30 09:40 | XMS_ITS | CONTINUITY OF CARE DOCUMENT ---
Author Name shana saldana Address Unknown Organization [facility] Address [address] [place] [address] Phone [phone] Care Team Providers Care Automotive Tire Testing Supervisor Name Role Phone shana saldana Unavailable Unavailable
--- OUTSIDE RECORDS SUMMARY | 2024-11-30 09:40 | XMS_ITS | Referral Summary ---
Author Organization [facility] Address [address] [facility] [place] [address] Care Team Providers Care Car Sweeper Name Role Phone Oli Alvarez Primary Care Provider [phone] Encounters Date Type Department Care Team Description 11/13/2024 10:00 AM CAR BRACER Office Visit [facility] Sports Medicine and Primary Care at [address] [place] [address] David Merchant DO It band syndrome, left (Primary Dx); Patellofemoral disorder of left knee 10/31/2024 1:00 PM CAR BRACER - 10/31/2024 2:04 PM [facility] Emergency [address] [address] Acute pain of left knee (Primary Dx) Discharge Disposition: Discharge to home or self care from Last 3 Months Allergies No known active allergies Medications multivit with calcium,iron,m in (MULTIVITAMIN- [id number] LS ORAL) Take by mouth 7 Active [...] 2nd Gen Pen Needle 32 gauge x /32 needle 3 Active Cialis 20 mg tablet [...] Benign hypertension 03/08/2014 Overview (01/25/2017): BENIGN HYPERTENSION Social History Tobacco Use Types Packs/Day Years [...] on file Legal Sex Male 11:54 PM CAR BRACER Gender Identity Male 10/09/2023 10:13 AM CAR BRACER Sexual Orientation Straight 10/09/2023 10 :13 AM CAR BRACER Last Filed Vital Signs Vital Sign Reading Time Taken Comments Blood Pressure 125/78 11/13/2024 10:00 AM CAR BRACER Pulse 80 11/13/2024 10:00 AM CAR BRACER Temperature 36.4 C (97.5 F) 10/31/2024 12:34 PM CAR BRACER Respiratory Rate 18 11/13/2024 10:0 0 AM CAR BRACER Oxygen Saturation 98% 10/31/2024 12: 34 PM CAR BRACER Inhaled Oxygen Concentration - - Weight 138.2 kg (304 lb 9.6 oz) 025 10:00 AM CAR BRACER Height 182.9 cm (6') 11/13/2024 10:00 AM CAR BRACER Body Mass Index 41.31 11/13/2024 10:00 AM CAR BRACER Plan of Treatment Not on file Procedures Procedure Name Priority Date/Time Associated Diagnosis Comments XR KNEE LEFT 1 OR 2 VIEWS ED 10/31/2024 1:07 PM CAR BRACER from Last 3 Months Results * XR Knee Left 1 or 2 Views (10/31/2024 1:07 PM CAR BRACER) Anatomical Region Laterality Modality Lower Extremities, Knee Left Computed Radiography 10/31/2024 1:28 PM CAR BRACER Narrative 10/31/2024 1:29 PM CAR BRACER EXAM DESCRIPTION: XR KNEE LEFT 1 OR [...] Nasra Cadena M.D. TW T: Report ID: [id number] Reading Location: [id number] Procedure Note Nasra Cadena MD - 10/31/2024 [...] Nasra Cadena M.D. TW T: Report ID: [id number] Reading Location: [id number] us Rehab Jorge A FAUSTIN IMG XR PROCEDURES Final Result from Last 3 Months Insurance [facility] AETNA SIGNATURE [facility] 9 Care Teams Car Sweeper Relationship Specialty Start Date End Date Oli Alvarez DO [address] [facility] [address] [place] [address] PCP - General Internal Medicine 10/31/24
--- OUTSIDE RECORDS SUMMARY | 2024-11-30 09:40 | XMS_ITS | Clinical Summary ---
Author Organization [facility] Care Team Providers Care Platform Consultant Name Role Phone Unavailable Primary Care Provider Unavailabl e Social History Tobacco Use Types Packs/Day Years Used Date Smoking Tobacco: Never Assessed Sex and Gender Information Value Date Recorded Sex Assigned at Not on file Legal Sex Male 12:21 AM CDT Gender Identity Not on file Sexual Orientation Not on file Plan of Treatment Health Maintenance Due Date Last Done Comments Hepatitis C Virus (HCV) Screening 1960 TdaP Immunization 1961 Colonoscopy 2006 Colorectal Cancer Screening 2006 Cologuard 2011 Immunochemical Fecal Occult Blood 2011 Pneumococcal Immunization (5 0+ years) (1 of 1 - PCV) 2011 Zoster Immunization (1 of 2) 2011 PSA Discussion 2016 Influenza Immunization (#1) 2024 11/02/2013 SARS-COV-2 Immunization ( season) 2024 09/04/2021, 12/29/2020 Respiratory Syncytial Virus (RSV) Immunization (Adult) (1 - 1-dose 75+ series) 2036 Hepatitis B Immunization Aged Out No longer eligible based on patient's age to complete this topic Meningococcal Immunization (ACWY) Aged Out No longer eligible b ased on patient's age to complete this topic Pneumococcal Immunization Combined Aged Out No longer eligible b ased on patient's age to complete this topic Rotavirus Immunization Aged Out No lo nger eligible based on patient's age to complete this topic
[2024-11-30 10:39] LABS: Alanine Aminotransferase 74 U/L (6-50); Alkaline Phosphatase 88 U/L (38-126); Anion Gap 6 mmol/L (4-12); Aspartate Amino Transferase 34 U/L (17-59); Bilirubin,Total 0.7 mg/dL (0.2-1.3); Blood Urea Nitrogen 24 mg/dL (9-20); Calcium 9.4 mg/dL (8.4-10.2); Carbon Dioxide 33 mmol/L (22-30); Chloride 98 mmol/L (98-107); Cholesterol 167 mg/dL (0-200); Estimated Glomerular Filt Rate > 60; Glucose 133 mg/dL (65-110); HDL Direct 31 mg/dL; Potassium 4.6 mmol/L (3.4-5.0); Sodium 137 mmol/L (137-145); Triglycerides 120 mg/dL (<150)
[2024-11-30 10:50] LABS: LDL Cholesterol Direct 112 mg/dL
[2024-11-30 11:09] LABS: Prostate Specific Antigen 1.4 ng/mL (< OR = 4.0)
[2024-11-30 11:11] LABS: Hemoglobin A1C 7.8 % (<5.7)
== END 2024-11-30 09:38 | disposition home or self-care (01) ==
LOC: ANHLAB 09:38
PROVIDERS: PCP Internal Medicine; Visit Provider Internal Medicine
DX: E11.9 Type 2 diabetes mellitus without complications (principal); E78.5 Hyperlipidemia, unspecified; Z12.5 Encounter for screening for malignant neoplasm of prostate; I10 Essential (primary) hypertension
CPT/HCPCS: 36415; 80053; 80061; 83036; 84153; G0103

== ENCOUNTER 2025-06-09 09:41 | Outpatient (CLI) | payer OTHER, SELFPAY ==
[2025-06-09 10:01] LABS: Hematocrit 46.5 % (42.0-52.0); Hemoglobin 15.5 g/dL (14.0-18.0); Immature Granulocyte Percent A 0.5 % (0-0.5); Lymphocytes Absolute Auto 0.95 K/mm3 (0.9-3.2); Mean Corpuscular HGB Conc 33.3 g/dl (32-36); Mean Corpuscular Hemoglobin 31.6 pg (26-34); Mean Corpuscular Volume 94.9 fl (80-100); Nucleated Red Blood Cells Absolute Auto 0.000 K/mm3 (0.0-0.012); Nucleated Red Blood Cells Perc 0.0 % (0.0-0.2); Platelet Count Result 218 k/mm3 (150-375); Red Blood Count 4.90 M/mm3 (4.6-6.20); White Blood Count 6.1 K/mm3 (4.5-10.0)
[2025-06-09 10:21] LABS: Hemoglobin A1C 7.8 % (<5.7)
[2025-06-09 10:22] LABS: Alanine Aminotransferase 92 U/L (6-50); Albumin Level 4.0 g/dL (3.5-5.1); Alkaline Phosphatase 84 U/L (38-126); Anion Gap 4 mmol/L (4-12); Aspartate Amino Transferase 50 U/L (17-59); Bilirubin,Total 0.6 mg/dL (0.2-1.3); Blood Urea Nitrogen 17 mg/dL (9-20); Calcium 9.4 mg/dL (8.4-10.2); Carbon Dioxide 29 mmol/L (22-30); Chloride 101 mmol/L (98-107); Cholesterol 178 mg/dL (0-200); Estimated Glomerular Filt Rate > 60; Glucose 148 mg/dL (65-110); HDL Direct 26 mg/dL; Potassium 4.5 mmol/L (3.4-5.0); Sodium 134 mmol/L (137-145); Total Protein 7.2 g/dL (6.3-8.2); Triglycerides 135 mg/dL (<150)
--- OUTSIDE RECORDS SUMMARY | 2025-06-09 10:24 | XMS_ITS | Clinical Summary ---
Author Organization [facility] Care Team Providers Care Large Animal Husbandry Technician Name Role Phone Unavailable Primary Care Provider [...] Virus (HCV) Screening 1961 TdaP Immunization 1961 Cologuard 2006 Colonoscopy 2006 Colorectal Cancer Screening 2006 Immunochemical Fecal Occult Blood 2006 Pneumococcal Immunization (5 0+ years) (1 of 1 - PCV) 2011 Zoster Immunization (1 of 2) 2011 SARS-COV-2 Immunization (3 - season) 2024 09/04/2021, 12/29/2020 Influenza Immunization (#1) 2025 11/02/2013 Respiratory Syncytial Virus (RSV) Immunization (Adult) (1 - 1-dose 75+ series) 2036 Hepatitis B Immunization Aged Out No longer eligible based on patient's age to complete this topic Human Papillomavirus (HPV) Immunization Aged Out No longer eligible b ased on patient's age to complete this topic Meningococcal Immunization (ACWY) Aged Out No longer eligible b ased on patient's age to complete this topic Rotavirus Immunization Aged Out No lo nger eligible based on patient's age to complete this topic
--- OUTSIDE RECORDS SUMMARY | 2025-06-09 10:24 | XMS_ITS | Clinical Summary ---
Author Organization [facility] Address [address] [place] [address] Care Team Providers Care Orthopaedic Nurse Name Role Phone Agustin Aguirre PA-C Primary Care Provide r Source Comments [facility],non-owned Affiliates and Associated Physician Practices is amultiple site organization consisting of ambulatory clinics and hospital sitesin [place], [place], [place] and [place]. This disclosure is being madepursuant to the Care Everywhere program and may not contain all information available regarding this patient. Last updated 18.[facility] Medications * Be aware that medications may not be up to date on this document. Alwaysverify current medications with the patient. metFORMIN (GLUCOPHAGE) 500 MG tablet Take by mouth. 05/18/2017 Active Vitamins/Mineral s TABS Take by mouth. 05/18/2017 Active lisinopril-hydro CHLOROthiazide (PRINZIDE; ZESTORETIC) 10-12.5 MG tablet Take by mouth. 05/18/2017 Active tadalafil (CIALIS) 20 MG tablet 3 04/08/2017 Active Family History Medical History Relation Name Comments Cataract Mother Hypertension Mother Thyroid Disease Sister Relation Name Status Comments Mother Sister Social History Tobacco Use Types Packs/Day Years Used Date Smoking Tobacco: Every Day Smokeless Tobacco: Never Alcohol Use Standard Drinks/Week Comments No 0 (1 standard drink = 0.6 oz pur e alcohol) Sex and Gender Information Value Date Recorded Sex Assigned at Not on file Legal Sex Male 5:31 PM GAS APPLIANCE REPAIRER Gender Identity Male 02/11/2025 1:22 PM CDT Sexual Orientation Straight 02/11/2025 1: 22 PM CDT Plan of Treatment Health Maintenance Due Date Last Done Comments COLOGUARD (AGES 45-75) - COL ON CA SCREENING 1961 COLON MONITORING 1961 COLONOSCOPY - COLON CA SCREENING 1961 CT COLONOGRAPHY - COLON CA SCREENING 1961 Colorectal Cancer Screening 1961 FIT - COLON CA SCREENING 1961 FLEX SIG - COLON CA SCREENING 1961 LIPID TESTING 1961 HIV SCREENING 1976 HEPATITIS C SCREENING 06/03/1979 DTAP/TDAP/TD VACCINES (1 - Tdap) 1980 PNEUMOCOCCAL VACCINE 50+ (1 of 2 - PCV) 1980 ZOSTER VACCINE (1 of 2) 2011 COVID-19 VACCINE ( - 2023-2 5 season) 2024 DEPRESSION SCREENING 10/23/2024 INFLUENZA VACCINE (#1) 2025 Respiratory Syncytial Virus (RSV) Vaccine Pt: or over 60 yrs (1 - 1-dose 75+ series) 2036 HEPATITIS B VACCINE Aged Out No longe r eligible based on patient's age to complete this topic HIB VACCINE Aged Out No longer eligi ble based on patient's age to complete this topic HPV VACCINE Aged Out No longer eligi ble based on patient's age to complete this topic MENINGOCOCCAL (Group B) VACC INE SHARED DECISION-MAKING Aged Out No longer eligibl e based on patient's age to complete this topic MENINGOCOCCAL GROUPS A/C/Y/W VACCINE Aged Out No longer eligible b ased on patient's age to complete this topic Insurance AETNA AETNA Care Teams Orthopaedic Nurse Relationship Specialty Start Date End Date Agustin Aguirre PA-C [address] [place] [address] PCP - General 05/15/17
--- OUTSIDE RECORDS SUMMARY | 2025-06-09 10:24 | XMS_ITS | Clinical Summary ---
Author Organization [facility] Address [address] [facility] [place] [address] Care Team Providers Care [employer] Name Role Phone Oli Alvarez DO Primary Care Provider [phone] Allergies No known active allergies Medications multivit with calcium,iron,mi n (MULTIVITAMIN-C K-DLAY-GSALVLTZ ORAL) Take by mouth 7 Active SEMGLEE-yfgn 100 unit/mL (3 mL) pen for injection ADMINISTER 50 UNITS UNDER THE SKIN DAILY 3 Active lisinopril-hydr oCHLOROthiazide (ZESTORETIC) 10-12.5 mg per tablet Take by [...] oxide (MAG-OX) 250 mg (150.8 mg elemental) tabletIndicatio ns:hypomagnesem ia 1 tablet (250 mg total) daily Active cholecalciferol (VITAMIN D-3) 2000 unit tablet Active calcium carbonate (CALCIUM 500 ORAL) Take by mouth Active methylPREDNISol one (Medrol, Pepe,) 4 mg Dosepack follow package directions 1 packet 5 Active celecoxib (CeleBREX) 200 mg capsuleIndicati ons:It band syndrome, left,Patellofem oral disorder of left knee Take 1 capsule (200 mg total) by mouth daily for 14 days 14 capsule 5 Active Active Problems Problem Noted Date Diagnosed Date 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 Overview (01/25/2017): MIXED HYPERLIPIDEMIA Gastroesophageal reflux disease 03/08/2014 Overview (01/25/2017): ESOPHAGEAL REFLUX Tobacco dependence syndrome 03/08/2014 Overview (01/25/2017): TOBACCO USE DISORDER Benign hypertension 03/08/2014 Overview (01/25/2017): BENIGN HYPERTENSION Surgical History Surgery Date Site/Laterality Comments OTHER SURGICAL HISTORY 1966 Tonsillitis: tonsillectomy CARPAL TUNNEL RELEASE 1989 Carpal tunnel release FL UPPER GI AIR CONTRAST W KUB 10/27/2023 Left Medical History Medical History Date Comments Hx Other Medical 2006 achilles tendon itis Hx Other Medical e.d. Tonsillitis Tonsillitis Diabetes mellitus (HCC) 2008 Hypertension 2010 Sleep apnea 2009 Kidney stone [...] on file Legal Sex Male 11:54 PM SENIOR SOFTWARE QA ENGINEER Gender Identity Male 10/09/2023 10:13 AM SENIOR SOFTWARE QA ENGINEER Sexual Orientation Straight 10/09/2023 10 :13 AM SENIOR SOFTWARE QA ENGINEER Obstetrics History Last Filed Vital Signs Vital Sign Reading Time Taken Comments Blood Pressure 125/78 11/13/2024 10:00 AM SENIOR SOFTWARE QA ENGINEER Pulse 80 11/13/2024 10:00 AM SENIOR SOFTWARE QA ENGINEER Temperature 36.4 C (97.5 F) 10/31/2024 12:34 PM SENIOR SOFTWARE QA ENGINEER Respiratory Rate 18 11/13/2024 10:0 0 AM SENIOR SOFTWARE QA ENGINEER Oxygen Saturation 98% 10/31/2024 12: 34 PM SENIOR SOFTWARE QA ENGINEER Inhaled Oxygen Concentration - - Weight 138.2 kg (304 lb 9.6 oz) 025 10:00 AM SENIOR SOFTWARE QA ENGINEER Height 182.9 cm (6') 11/13/2024 10:00 AM SENIOR SOFTWARE QA ENGINEER Body Mass Index 41.31 11/13/2024 10:00 AM SENIOR SOFTWARE QA ENGINEER Plan of Treatment Health Maintenance Due Date Last Done Comments Colon Cancer Screening-Colonoscopy 1961 Depression Screening 1961 Hepatitis C Screening 1961 Prostate Cancer Screening-PSA 1961 DTaP/Tdap/Td Vaccine (1 - Tdap) 1972 Hepatitis B Screening 1979 Regular Well Visit/Exam 18-64 1979 Zoster Vaccine (1 of 2) 2011 Covid-19 Vaccine (3 - 2023-2 5 season) 2024 09/04/2021, 12/29/2020 Influenza Vaccine (#1) 2025 11/02/2013 Pneumococcal vaccine <65 Aged Out No longer eligible based on patient's age to complete this topic Insurance [place] [id number] Care Teams [employer] Relationship Specialty Start Date End Date Oli Alvarez DO [address] [facility] [address] [place] [address] PCP - General Internal Medicine 10/31/24
== END 2025-06-09 09:42 | disposition home or self-care (01) ==
LOC: ANHLAB 09:42
PROVIDERS: PCP Internal Medicine; Visit Provider Internal Medicine
DX: E78.5 Hyperlipidemia, unspecified (principal); I10 Essential (primary) hypertension; E11.9 Type 2 diabetes mellitus without complications; Z79.4 Long term (current) use of insulin
CPT/HCPCS: 36415; 80053; 80061; 83036; 85025

== ENCOUNTER 2025-07-03 15:25 | Outpatient (CLI) | payer OTHER, SELFPAY ==
--- OUTSIDE RECORDS SUMMARY | 2009-03-18 05:30 | XMS_ITS | Continuity of Care Document ---
Author Organization [facility] Address [address] [place] [address] Phone Care Team Providers Care Tunnel Form Placing Supervisor Name Role Phone Adams OD, Pedro Unavailable Unavailable Procedures Procedure Date Remove Foreign Body From Eye Advance Directives Directive Yes / No Effective Date File Name No Information Encounters Encounter Description Practice Location Reason(s) For Visit Diagnoses Date Provider Providers Copied on Encounter [facility], [address], [place], [place], [id number], [place] tel:[phone] [facility] No Information [phone] Adams OD Pedro. [address] , [address], [place], [address], [place]. tel:[phone] Family History Family Member Type Diagnosis Age At Onset No Information Payers Payer name Insurance type Covered green party ID Authoriza tion(s) No Information Social History Type Description Quantity Date Captured Comments Sex Male Smoking Status No Information Chief Complaint And Reason For Visit No Information Reason For Referral Reason For Referral No Information History Of Present Illness Encounter Date Complaint History Of Prese nt Illness No Information Functional Status Date Functional Assessmen t No Information Instructions Date Instruction Additional Infor mation No Information Assessments Type Assessment Date No Information Patient Care Teams Name Effective Dates (start - stop) Status Members No Information
--- NOTE | ~2025-07-03 | CT_ITS ---
EXAMINATION:CT lung screening DATE: 07/03/2025 15:42 INDICATION: Tobacco use. TECHNIQUE: Computed tomography (CT) of the chest was performed without intravenous contrast. Automated exposure control and iterative reconstruction technique were employed. The dose-length product (DLP) was 430.57 mGy-cm. COMPARISON: None. FINDINGS: The lungs demonstrate mild atelectasis. Calcified right lung nodules and calcified right hilar lymph nodes are consistent with old granulomatous disease. There is a 2 mm nodule in left upper lobe. No pleural effusion. The heart size is normal. There are coronary artery calcifications. No pericardial effusion. Calcifications in the spleen are consistent with old granulomatous disease. There is severe spondylosis at thoracolumbar junction. IMPRESSION: 1. Lung-RADS category 2: Benign appearance or behavior. Continue annual screening with noncontrast low-dose chest CT in 12 months. Reviewed, dictated and finalized at location E. IMPRESSION: 1. Lung-RADS category 2: Benign appearance or behavior. Continue annual screeni ng with noncontrast low-dose chest CT in 12 months.
--- OUTSIDE RECORDS SUMMARY | 2025-07-03 16:48 | XMS_ITS | Clinical Summary ---
Author Organization [facility] Address [address] [place] [address] Care Team Providers Care Machine Striper Name Role Phone Oli Alvarez DO Primary Care Provider [phone] Allergies No known active allergies Medications multivit with calcium,iron,mi n (MULTIVITAMIN-C [id number]-QLCI-BNLNMTGE ORAL) Take by mouth 7 Active SEMGLEE-yfgn [...] on file Legal Sex Male 11:54 PM CHIEF LIBRARIAN WORK WITH [employer]IND Gender Identity Male 10/09/2023 10:13 AM CHIEF LIBRARIAN [employer] Sexual Orientation Straight 10/09/2023 10 :13 AM CHIEF LIBRARIAN WORK [employer] Obstetrics History Last Filed Vital Signs Vital Sign Reading Time Taken Comments Blood Pressure 125/78 11/13/2024 10:00 AM CHIEF LIBRARIAN [employer] Pulse 80 11/13/2024 10:00 AM CHIEF LIBRARIAN [employer] Temperature 36.4 C (97.5 F) 10/31/2024 12:34 PM CHIEF LIBRARIAN WORK [employer] Respiratory Rate 18 11/13/2024 10:0 0 AM CHIEF LIBRARIAN WORK [employer] Oxygen Saturation 98% 10/31/2024 12: 34 PM CHIEF LIBRARIAN WORK [employer] Inhaled Oxygen Concentration - - Weight 138.2 kg (304 lb 9.6 oz) 025 10:00 AM CHIEF LIBRARIAN WORK [employer] Height 182.9 cm (6') 11/13/2024 10:00 AM CHIEF LIBRARIAN WORK [employer] Body Mass Index 41.31 11/13/2024 10:00 AM CHIEF LIBRARIAN WORK [employer]IND Plan of Treatment Health Maintenance Due Date Last Done Comments Colon Cancer Screening-Colonoscopy 1961 Depression Screening 1961 Hepatitis C Screening 1961 Prostate Cancer Screening-PSA 1961 DTaP/Tdap/Td Vaccine (1 - Tdap) 1972 Hepatitis B Screening 1979 Regular Well Visit/Exam 18-64 1979 Zoster Vaccine (1 of 2) 2011 Covid-19 Vaccine (3 - 2024-2 6 season) 2025 09/04/2021, 12/29/2020 Influenza Vaccine (#1) 2025 11/02/2013 Pneumococcal vaccine <65 Aged Out No longer eligible based on patient's age to complete this topic Insurance [place] [id number] Care Teams Machine Striper Relationship Specialty Start Date End Date Oli Alvarez DO PCP - General Internal Medicine 10/31/24
--- OUTSIDE RECORDS SUMMARY | 2025-07-03 16:48 | XMS_ITS | Clinical Summary ---
Author Organization [facility] Care Team Providers Care Vacuum Tester Cans Name Role Phone Unavailable Primary Care Provider [...]
== END 2025-07-03 15:26 | disposition home or self-care (01) ==
PROVIDERS: PCP Internal Medicine; Visit Provider Internal Medicine
DX: Z12.2 Encounter for screening for malignant neoplasm of respiratory organs (principal); Z72.0 Tobacco use
CPT/HCPCS: 71271